=== PATIENT | female | born 1940 | race Caucasian/White ===

== ENCOUNTER 2016-08-10 07:22 | Inpatient (IN) | payer MEDICARE, BC ==
[~2016-08-10 07:22] MED LIST: Bisacodyl 5 MG Tab PO PRN; Lactated Ringers 1,000 ML IV SCH; Lidocaine 1%/Sod Bicarbonate in NS 8.4% 1 ML Syringe IV PRN; Magnesium Hydroxide 400 MG/5 ML Susp 30 ML Cup PO PRN; Naloxone 0.4 MG/ML SDV IVPUSH PRN; Sennosides 8.6 MG Tab PO PRN; Sodium Chloride 0.9% 10 ML Syringe FLUSH PRN; ceFAZolin 2 GM in Premix Bag 1 BAG IV SCH
[2016-08-10] MEDS ORDERED: ceFAZolin 1 GM Vial ONE (07:24)
[2016-08-10] MEDS ORDERED: Propofol 200 MG/20 ML SDV ONE ×2 (07:33→09:56)
[2016-08-10] MEDS ORDERED: Lidocaine 1% 4 ML ONE (07:33)
[2016-08-10] MEDS ORDERED: Morphine PF 10 MG/10 ML SDV ONE (07:33)
[2016-08-10] MEDS ORDERED: Midazolam 1 MG/ML 2 ML SDV ONE (07:48)
--- NOTE | 2016-08-10 08:03 | PCM.PREANE ---
Preanesthetic Assessment - Procedure Proposed Procedure: Right total knee replacement - Anesthesia/Transfusion/Family Hx Anesthesia History: Prior Anesthesia Reaction (nausea from general anesthetics) Family History of Anesthesia Reaction: No Transfusion History: Prior Transfusion Without Reaction Intubation History: Unknown - Review of Systems General: No Symptoms Pulmonary: No Symptoms Cardiovascular: Dyspnea on Exertion (with 2 flights of stairs ) Gastrointestinal: No symptoms Neurological: Other (restless leg syndrome on medication ) Other: Reports: None - Physical Assessment NPO Status Date: 08/09/16 NPO Status Time: 20:30 Pulse: 67 O2 Sat by Pulse Oximetry: 96 Respiratory Rate: 16 Blood Pressure: 154/91 Temperature: 36.9 C Height: 1.63 m Weight: 106.141 kg ASA Class: 3 Mental Status: Alert & Oriented x3 Airway Class: Mallampati = 1 Dentition: Reports: Dentures (upper ), Edentulous (lower ) Thyro-Mental Finger Breadths: 3 Mouth Opening Finger Breadths: 4 ROM/Head Extension: Full Lungs: Clear to auscultation, Normal respiratory effort Cardiovascular: Regular Rate, Regular Rhythm - Lab Values: Laboratory Last Values MRSA (PCR) Negative 07/29/16 13:39 Plts 122, INR being drawn - Allergies Allergies/Adverse Reactions: Allergies Allergy/AdvReac Type Severity Reaction Status Date / Time adhesive Allergy Rash Verified 08/07/16 15:39 pravastatin [From Pravachol] Allergy Muscle Verified 08/07/16 15:39 Weakness atorvastatin calcium AdvReac Muscle Verified 08/07/16 15:39 [From Lipitor] Weakness rosuvastatin calcium AdvReac Muscle Verified 08/07/16 15:39 [From Crestor] Weakness simvastatin [From Zocor] AdvReac Muscle Verified 08/07/16 15:39 Weakness Ubdlxht-Teb-Qkv Reductase AdvReac Muscle Verified 08/07/16 15:39 Inhibitor Weakness - Blood Blood Available: No - Anesthesia Plan Pre-Op Medication Ordered: None - Acknowledgements Anesthesia Type Planned: Spinal Pt an Appropriate Candidate for the Planned Anesthesia: Yes Alternatives and Risks of Anesthesia Discussed w Pt/Guardian: Yes Pt/Guardian Understands and Agrees with Anesthesia Plan: Yes PreAnesthesia Questionnaire HEENT History: Reports: Retinal Detachment, Other (See Below) Other HEENT History: dentures, hearing aids, glasses Cardiovascular History: Reports: Afib, High Cholesterol, Hypertension, Other ( See Below) Other Cardiovascular History: DVT L lower leg, arteriosclerotic vascular disease , varicose veins Respiratory History: Reports: 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 (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) Other OB/BYN History: Vaginal hysterectomy Musculoskeletal History: Reports: Other (See Below) Other Musculoskeletal History: polymyalgia rheumatica, restless leg syndrome, back pain, L shoudler subacromial impingement, osteoarthritis to R knee Neurological History: Reports: Other (See Below) Psychiatric History: Reports: None Endocrine/Metabolic History: Reports: None Hematologic History: Reports: Other (See Below) Other Hematologic History: is on blood thinners Immunologic History: Reports: Other (See Below) Other Immunologic History: Polymyalgia rheumatic Oncologic (Cancer) History: Reports: Breast Dermatologic History: Reports: Other (See Below) Other Dermatologic History: varicose veins, cyst excision, contact dermatitis, thrombophlebitis - Past Surgical History HEENT Surgical History: Reports: Cataract Surgery, Eye Surgery, LASIK, Tonsillectomy GI Surgical History: Reports: Colonoscopy Female Surgical History: Reports: Hysterectomy, Mastectomy, Other (See Below) Other Female Surgeries/Procedures: R breast cancer with partial masectomy Other Neurological Surgeries/Procedures: spine surgery Musculoskeletal Surgical History: Reports: Other (See Below) Other Musculoskeletal Surgeries/Procedures:: Elbow surgery with radial head replacment, L and R total hip replacement Oncologic Surgical History: Reports: Other (See Below) Other Oncologic Surgeries/Procedures: Current right partial mastectomy with lymph node removal. - SUBSTANCE USE Smoking Status *Q: Never Smoker Second Hand Smoke Exposure: No Recreational Drug Use History: No - HOME MEDS Home Medications: Home Meds Metoprolol Succinate [Toprol XL] 50 mg PO 1600 05/09/15 [History] Warfarin [Coumadin] 5 mg PO MOWEFR 05/09/15 [History] Warfarin [Coumadin] 7.5 mg PO SUTUTHSA 05/09/15 [History] Anastrozole [Anastrozole] 1 mg PO DAILY 08/07/16 [History] Ezetimibe [Zetia] 10 mg PO DAILY 08/07/16 [History] Gabapentin [Gabapentin] 300 mg PO TID 08/07/16 [History] Potassium Chloride [Klor-Con 10] 10 meq PO DAILY 08/07/16 [History] guaiFENesin [Mucinex] 1,200 mg PO DAILY 08/07/16 [History] - CURRENT (IN HOUSE) MEDS Current Meds: Current Medications Bisacodyl (Dulcolax) 5 mg PO DAILY PRN PRN Reason: Constipation Morphine Sulfate 8 mg/Epinephrine HCl 0.3 mg/Cefuroxime Sodium 750 mg/Ketorolac Tromethamine 30 mg/Sodium Chloride 27.9 ml 0 mg .XX ONETIME ONE Stop: 08/10/16 09:31 Docusate Sodium (Colace) 100 mg PO BID [facility] Enoxaparin Sodium (Lovenox) 40 mg SUBCUT BID [facility] Famotidine (Pepcid) 20 mg PO Q12H [facility] Lactated Ringer's (Ringers, Lactated) 1,000 mls @ 125 mls/hr IV ASDIRECTED [facility] Cefazolin Sodium/Dextrose 2 gm (/ Premix) 50 mls @ 100 mls/hr IV Q8H [facility] Stop: 08/10/16 23:44 Lidocaine/Sodium Bicarbonate (Buffered Lidocaine 1% In Ns 8.4%) 0.25 ml IV ONETIME PRN PRN Reason: Prior to IV Start Stop: 08/10/16 18:00 Magnesium Hydroxide (Milk Of Magnesia) 30 ml PO BID PRN PRN Reason: Constipation Morphine Sulfate (Morphine) 2 mg IVPUSH Q2H PRN PRN Reason: Breakthrough Pain Multivitamins (Thera) 1 each PO WITHBREAKFAST [facility] Ondansetron HCl (Zofran) 4 mg IVPUSH Q6H PRN PRN Reason: Nausea/Vomiting Oxycodone/Acetaminophen (Percocet 325-5 Mg) 1 - 2 tab PO Q4H PRN PRN Reason: Pain Senna (Senna) 8.6 mg PO BID PRN PRN Reason: Constipation Sodium Chloride (Saline Flush) 10 ml FLUSH ASDIRECTED PRN PRN Reason: Keep Vein Open Warfarin Sodium (Pharmacy To Dose - Warfarin) 1 dose .XX ASDIRECTED [facility] Discontinued Medications Bupivacaine HCl (Marcaine 0.25%) Confirm Administered Dose 30 ml .ROUTE .STK- MED ONE Stop: 08/10/16 07:25 Cefazolin Sodium (Ancef) Confirm Administered Dose 2 gm .ROUTE .STK-MED ONE Stop: 08/10/16 07:25 Lidocaine HCl (Xylocaine-Mpf 1%) Confirm Administered Dose 4 mls @ as directed .ROUTE .STK-MED ONE Stop: 08/10/16 07:34 Iodine (Iodine 2% Mild Tincture) Confirm Administered Dose 30 ml .ROUTE .STK- MED ONE Stop: 08/10/16 07:25 Midazolam HCl (Versed 1 Mg/Ml) Confirm Administered Dose 2 mg .ROUTE .STK-MED ONE Stop: 08/10/16 07:49 Morphine Sulfate (Duramorph Pf) Confirm Administered Dose 10 mg .ROUTE .STK-MED ONE Stop: 08/10/16 07:34 Naloxone HCl (Narcan) 0.1 mg IVPUSH Q5M PRN PRN Reason: Oversedation Stop: 08/10/16 07:26 Propofol (Diprivan 20 Ml) Confirm Administered Dose 200 mg .ROUTE .STK-MED ONE Stop: 08/10/16 07:34 Tranexamic Acid (Cyklokapron) Confirm Administered Dose 1,000 mg .ROUTE .STK- MED ONE Stop: 08/10/16 07:25
[2016-08-10] MEDS ORDERED: Diphtheria,Pertussis(Acell),Tetanus Vaccine 0.5 ML SDV inactive IM ONE (09:11)
[2016-08-10] MEDS ORDERED: Ondansetron 4 MG/2 ML SDV ONE (09:23)
[2016-08-10] MEDS: ceFAZolin 1 GM Vial ONE ×2 (09:39→10:17)
[2016-08-10] MEDS: Bupivacaine 0.25% 30 ML SDV ONE ×2 (09:39→10:21)
[2016-08-10] MEDS: Iodine/Sodium Iodide 2% Tincture 30 ML Bottle ONE ×2 (09:40→10:15)
[2016-08-10] MEDS: Morphine 8 MG, EPINEPHrine 0.3 MG, Cefuroxime 750 MG, Ketorolac 30 MG, Sodium Chloride ... ONE ×10 (09:41→10:20)
[2016-08-10] MEDS ORDERED: ePHEDrine/Normal Saline 25 MG/5 ML Syringe ONE (10:28)
[2016-08-10] MEDS ORDERED: fentaNYL 100 MCG/2 ML SDV IVPUSH PRN (11:11)
[2016-08-10] MEDS ORDERED: Ondansetron 4 MG/2 ML SDV IVPUSH PRN (11:11)
[2016-08-10] MEDS ORDERED: diphenhydrAMINE 50 MG/ML SDV IVPUSH PRN (11:11)
[2016-08-10] MEDS ORDERED: HYDROmorphone 1 MG/ML Syringe IVPUSH PRN (11:11)
--- NOTE | 2016-08-10 11:11 | PCM.POSTAN ---
POST ANESTHESIA ASSESSMENT - MENTAL STATUS Mental Status: alert - VITAL SIGNS Pulse Rate: 78 SaO2: 96 Resp Rate: 18 Blood Pressure: 104/59 Temperature: 36.6 C - RESPIRATORY Respiratory Status: respiratory rate WNL, airway patent, O2 saturation stable, supplemental oxygen - CARDIOVASCULAR CV Status: pulse rate WNL, blood pressure stable - GASTROINTESTINAL GI Status: no symptoms - PAIN Pain Score: 0 - POST OP HYDRATION Hydration Status: adequate & stable
--- NOTE | 2016-08-10 11:49 | CR ---
Right knee: AP and lateral views of the right knee were obtained. Comparison: No previous knee study. Knee prosthesis is seen. Components are aligned. Underlying bony structures are intact. Soft tissue air is noted from the surgical procedure. Impression: 1. Satisfactory radiographic appearance of recently placed right knee prosthesis. Diagnostic code #2
[2016-08-10] MEDS: Famotidine 20 MG Tab PO SCH ×2 (12:14→18:20)
--- NOTE | 2016-08-10 12:49 | PCM.CONS ---
H&P History of Present Illness - General Date of Service: 08/10/16 Admit Problem/Dx: Admission Diagnosis/Problem Admission Diagnosis/Problem Osteoarthritis of knee Source of Information: Patient, Old Records, Provider, Significant Other History Limitations: Reports: Physical Impairment - History of Present Illness Initial Comments - Free Text/Narative: This is an 80-year-old, white male, with past medical history of HTN, HLD, Chronic Congestion, ASVD, PAF on Warfarin, PMR, Chronic Backache, Sub-acrominal Impingement, Hand and Foot Syndrome, Hx/o Thrombophlebitis, Hx/o BRCA S/p Chemo- Radiation Therapy 2015 who underwent right right total knee arthroplasty post operative day zero. Patient is doing relatively well. Currently, her pain is controlled. She denies any acute issues. Hospital Medicine was consulted for postoperative care. - Related Data Allergies/Adverse Reactions: Allergies Allergy/AdvReac Type Severity Reaction Status Date / Time adhesive Allergy Rash Verified 08/10/16 08:42 pravastatin [From Pravachol] Allergy Muscle Verified 08/10/16 08:42 Weakness atorvastatin calcium AdvReac Muscle Verified 08/10/16 08:42 [From Lipitor] Weakness rosuvastatin calcium AdvReac Muscle Verified 08/10/16 08:42 [From Crestor] Weakness simvastatin [From Zocor] AdvReac Muscle Verified 08/10/16 08:42 Weakness Zluqksb-Dvq-Sub Reductase AdvReac Muscle Verified 08/10/16 08:42 Inhibitor Weakness Home Medications: Home Meds Metoprolol Succinate [Toprol XL] 50 mg PO 1600 05/09/15 [History] Warfarin [Coumadin] 5 mg PO MOWEFR 05/09/15 [History] Warfarin [Coumadin] 7.5 mg PO SUTUTHSA 05/09/15 [History] Gabapentin [Gabapentin] 300 mg PO TID 08/07/16 [History] Potassium Chloride [Klor-Con 10] 10 meq PO DAILY 08/07/16 [History] guaiFENesin [Mucinex] 1,200 mg PO DAILY 08/07/16 [History] Anastrozole [Arimidex] 1 mg PO DAILY 08/10/16 [History] Calcium Carb & Citrate/Vit D3 [Calcium + D3 ER Tablet] 1 tab PO BID 08/10/16 [ History] Multivitamin [Daily Multiple Vitamin] 1 tab PO DAILY 08/10/16 [History] Past Medical History HEENT History: Reports: Retinal Detachment, Other (See Below) Other HEENT History: dentures, hearing aids, glasses Cardiovascular History: Reports: Afib, High Cholesterol, Hypertension, Other ( See Below) Other Cardiovascular History: DVT L lower leg, arteriosclerotic vascular disease , varicose veins Respiratory History: Reports: 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) Other OB/BYN History: Vaginal hysterectomy Musculoskeletal History: Reports: Other (See Below) Other Musculoskeletal History: polymyalgia rheumatica, restless leg syndrome, back pain, L shoudler subacromial impingement, osteoarthritis to R knee Neurological History: Reports: Other (See Below) Psychiatric History: Reports: None Endocrine/Metabolic History: Reports: None Hematologic History: Reports: Other (See Below) Other Hematologic History: is on blood thinners Immunologic History: Reports: Other (See Below) Other Immunologic History: Polymyalgia rheumatic Oncologic (Cancer) History: Reports: Breast Dermatologic History: Reports: Other (See Below) Other Dermatologic History: varicose veins, cyst excision, contact dermatitis, thrombophlebitis - Past Surgical History HEENT Surgical History: Reports: Cataract Surgery, Eye Surgery, LASIK, Tonsillectomy GI Surgical History: Reports: Colonoscopy Female Surgical History: Reports: Hysterectomy, Mastectomy, Other (See Below) Other Female Surgeries/Procedures: R breast cancer with partial masectomy Other Neurological Surgeries/Procedures: spine surgery Musculoskeletal Surgical History: Reports: Other (See Below) Other Musculoskeletal Surgeries/Procedures:: Elbow surgery with radial head replacment, L and R total hip replacement Oncologic Surgical History: Reports: Other (See Below) Other Oncologic Surgeries/Procedures: Current right partial mastectomy with lymph node removal. Social & Family History - Family History Family Medical History: Noncontributory - Tobacco Use Smoking Status *Q: Never Smoker Second Hand Smoke Exposure: No - Caffeine Use Caffeine Use: Reports: Coffee - Recreational Drug Use Recreational Drug Use: No Drug Use in Last 12 Months: No H&P Review of Systems - Review of Systems: Review Of Systems: See Below General: Denies: Fever, Chills, Malaise, Weakness, Fatigue HEENT: Reports: No Symptoms Pulmonary: Denies: Shortness of Breath Cardiovascular: Denies: Chest Pain, Dyspnea on Exertion Gastrointestinal: Denies: Abdominal Pain, Nausea, Vomiting Genitourinary: Denies: Dysuria Musculoskeletal: Reports: No Symptoms Skin: Denies: Cyanosis, Rash, Erythema Psychiatric: Denies: Depression, Anxiety, Hallucinations Neurological: Reports: Difficulty Walking, Gait Disturbance. Denies: Confusion Hematologic/Lymphatic: Reports: No Symptoms Immunologic: Reports: No Symptoms Exam - Exam Exam: See Below - Vital Signs Vital Signs: Last Vital Signs Temp 36.4 C 08/10/16 11:45 Pulse 78 08/10/16 11:10 Resp 16 08/10/16 11:45 BP 102/57 L 08/10/16 11:45 Pulse Ox 96 08/10/16 11:45 Weight: 106.141 kg - Exam Quality Assessment: Supplemental Oxygen General: Alert, Oriented, Cooperative, Other (Obese). No: Mild Distress HEENT: Conjunctiva Clear, EACs Clear, Hearing Intact, Mucosa Moist & [place], Nares Patent, Normal Nasal Septum, Posterior Pharynx Clear, Pupils Equal, Pupils Reactive Neck: Supple, Trachea Midline, +2 Carotid Pulse wo Bruit, Other (short and thick ) Lungs: Clear to Auscultation, Normal Respiratory Effort Cardiovascular: Regular Rate, Regular Rhythm Abdomen: Normal Bowel Sounds, Soft, Tenderness. No: Organomegaly (Female) Exam: Other (Indwelling spicer catheter) Rectal (Female) Exam: Deferred Back Exam: Normal Inspection, Decreased Range of Motion Extremities: Normal Inspection, Normal Pulses, Cyanosis, Calf Tenderness. No: Edema Peripheral Pulses: 2+: Posterior Tibial (L), Posterior Tibial (R), Dorsalis Pedis (L), Dorsalis Pedis (R) Skin: Warm, Dry, Intact Neuro Extensive - Mental Status: Oriented x3, Normal Cognition, Memory Intact Neuro Extensive - Motor, Sensory, Reflexes: CN II-XII Intact (limited but fairly stable), Abnormal Gait Psychiatric: Alert, Normal Affect, Normal Mood - Patient Data Lab Results last 24 hrs: Laboratory Results - last 24 hr 08/10/16 Range/Units 07:50 PT 9.8 (8.0-13.0) SECONDS INR 0.90 Consult PN Assessment/Plan POD#: 0 Procedures: Procedures ASSAY OF CREATININE (05/18/16) ASSAY OF MAGNESIUM (07/27/15) ASSAY OF PHOSPHORUS (03/11/15) ASSAY OF TROPONIN QUANT (05/14/15) BIOPSY/REMOVAL LYMPH NODES (03/11/15) BX BREAST 1ST LESION STRTCTC (02/12/15) CHEST X-RAY 1 VIEW FRONTAL (05/14/15) COMPLETE CBC W/AUTO DIFF WBC (07/27/15) COMPREHEN METABOLIC PANEL (07/27/15) CT ANGIOGRAPHY CHEST (05/14/15) CYTOGENETICS 25-99 (02/12/15) CYTOGENETICS DNA PROBE (02/12/15) DESTRUCT B9 LESION 1-14 (03/11/15) DXA BONE DENSITY AXIAL (05/25/16) ELECTROCARDIOGRAM TRACING (05/14/15) EMERGENCY DEPT VISIT (07/27/15) EMERGENCY DEPT VISIT (05/14/15) FIBRIN DEGRADATION QUANT (05/14/15) FLUOROSCOPE EXAMINATION (05/10/15) HYDRATION IV INFUSION INIT (07/27/15) IMMUNOHISTO ANTB 1ST STAIN (03/11/15) IMMUNOHISTO ANTIBODY SLIDE (02/12/15) INSERT TUNNELED CV CATH (05/10/15) MRI BRAIN STEM W/O & W/DYE (05/18/16) MRI LUMBAR SPINE W/O DYE (04/27/14) OT EVALUATION (03/11/15) PARTIAL MASTECTOMY (03/11/15) PATH CONSULT INTRAOP 1 BLOC (03/11/15) PATH CONSULT INTRAOP ADDL (03/11/15) PERQ DEVICE BREAST 1ST IMAG (03/11/15) PROTHROMBIN TIME (07/27/15) PT EVALUATION (03/11/15) RA TRACER ID OF SENTINL NODE (03/11/15) ROUTINE VENIPUNCTURE (05/18/16) THER/PROPH/DIAG INJ SC/IM (05/14/15) TISSUE EXAM BY PATHOLOGIST (03/11/15) TISSUE EXAM BY PATHOLOGIST (03/11/15) TISSUE EXAM BY PATHOLOGIST (02/12/15) TTE W/DOPPLER COMPLETE (03/11/15) ULTRASOUND BREAST COMPLETE (10/31/15) URINALYSIS AUTO W/SCOPE (03/11/15) X-RAY EXAM BREAST SPECIMEN (03/11/15) Problem List Initiated/Reviewed/Updated: Yes Plan: Assessment: Acute: Post-Operative Care State - Stable - Continue to monitor for hemodynamic instability S/p Right Total Knee Arthroplasty - Stable - DVT and Pain Management as per primary team Hx/o Chronic Knee Pain 2/2 OA - Pain Management as per primary team Chronic: HTN HLD Congestion ASVD PAF on Warfarin PMR Backache Sub-acrominal Impingement Hand and Foot Syndrome Hx/o Thrombophlebitis Hx/o BRCA S/p Chemo-radiation Therapy 2016 Obesity with BMI 39.5 Plan: She is clinically stable Routine AM labs Continue home meds Resume anticoags with daily INR PT/OT consult IS q2 awake Thank you for the opportunity to participate in the management of this patient. Requesting Provider: Dr. Chapa Date Consult Requested: 08/10/16 Reason for Consult: Post-Operative Care Patient History Reviewed: Yes Admission H&P Reviewed: Yes Consult Result/Summary: Stable
[2016-08-10] MEDS ORDERED: hydrALAZINE 20 MG/ML SDV IVPUSH PRN (14:38)
[2016-08-10] MEDS ORDERED: Metoprolol Tartrate 5 MG/5 ML SDV IVPUSH PRN (14:38)
[2016-08-10] MEDS: Enoxaparin 100 MG/1 ML Syringe SUBCUT SCH ×2 (14:47→21:48)
[2016-08-10] MEDS ORDERED: Lactated Ringers 2,000 ML ONE (14:51)
[2016-08-10] MEDS: ceFAZolin 2 GM in Premix Bag 1 BAG IV SCH ×2 (15:27→22:36)
[2016-08-10] MEDS ORDERED: Warfarin 5 MG Tab PO SCH (18:00)
[2016-08-10] MEDS: Acetaminophen/oxyCODONE 325-5 MG Tab PO PRN ×2 (18:20→22:36)
[2016-08-10] MEDS: Docusate Sodium 100 MG Cap PO SCH (21:48)
[2016-08-11] MEDS: Acetaminophen/oxyCODONE 325-5 MG Tab PO PRN ×6 (04:05→21:41)
[2016-08-11] MEDS: Multivitamins,Therapeutic Tab PO SCH (06:37)
[2016-08-11] MEDS: Famotidine 20 MG Tab PO SCH ×3 (06:38→18:58)
[2016-08-11] MEDS: ceFAZolin 2 GM in Premix Bag 1 BAG IV SCH (06:38)
--- NOTE | 2016-08-11 06:54 | PCM.CONSN ---
- General Info Date of Service: 08/11/16 Admission Dx/Problem (Free Text): Admission Diagnosis/Problem Admission Diagnosis/Problem Osteoarthritis of knee POD #[address] Chapa Pain under fair to poor control. She is nauseous this morning and was through the night. Remains on supplemental oxygen at this time. Will need lovenox bridge for Coumadin which was restarted. Otherwise VSS, labs stable. Functional Status: Reports: pain controlled, tolerating diet, ambulating, urinating. Denies: new symptoms - Review of Systems General: Reports: No Symptoms HEENT: Reports: no symptoms Pulmonary: Reports: no symptoms. Denies: shortness of breath, cough, wheezing Cardiovascular: Reports: No Symptoms Gastrointestinal: Reports: Decreased appetite, Flatus, Nausea. Denies: Abdominal pain, Vomiting Genitourinary: Reports: no symptoms Musculoskeletal: Reports: leg pain Skin: Reports: no symptoms Neurological: Reports: No Symptoms Psychiatric: Reports: no symptoms - Patient Data Vitals - most recent: Last Vital Signs Temp 97.9 F 08/11/16 03:48 Pulse 78 08/11/16 03:48 Resp 12 08/11/16 06:00 BP 113/61 08/11/16 03:48 Pulse Ox 96 08/11/16 03:48 Weight - most recent: 241 lb 1.6 oz I&O - last 24 hours: Intake & Output 08/10/16 08/10/16 08/11/16 14:59 22:59 06:59 Intake Total 466 997 1217 Output Total 240 100 100 Balance -90 270 950 Lab Results last 24 hrs: Laboratory Results - last 24 hr 08/10/16 08/11/16 Range/Units 07:50 05:16 WBC 6.17 (3.98-10.04) K/mm3 RBC 3.52 L (3.98-5.22) M/mm3 Hgb 11.0 L (11.2-15.7) gm/L Hct 34.2 (34.1-44.9) % MCV 97.2 H (79.4-94.8) fl MCH 31.3 (25.6-32.2) pg MCHC 32.2 (32.2-35.5) g/dl RDW Std Deviation 46.3 (36.4-46.3) fL Plt Count 177 L (182-369) K/mm3 MPV 8.5 L (9.4-12.3) fl Neut % (Auto) 70.4 (34.0-71.1) % Lymph % (Auto) 11.7 L (19.3-51.7) % Irwin % (Auto) 14.7 H (4.7-12.5) % Eos % (Auto) 2.8 (0.7-5.8) Baso % (Auto) 0.2 (0.1-1.2) % Neut # (Auto) 4.35 (1.56-6.13) K/mm3 Lymph # (Auto) 0.72 L (1.18-3.74) K/mm3 Irwin # (Auto) 0.91 H (0.24-0.36) K/mm3 Eos # (Auto) 0.17 (0.04-0.36) K/mm3 Baso # (Auto) 0.01 (0.01-0.08) K/mm3 PT 9.8 (8.0-13.0) SECONDS INR 0.90 Med Orders - Current: Current Medications Bisacodyl (Dulcolax) 5 mg PO DAILY PRN PRN Reason: Constipation Diphenhydramine HCl (Benadryl) 12.5 mg IVPUSH Q6H PRN PRN Reason: pruritis Docusate Sodium (Colace) 100 mg PO BID [facility] Last Admin: 08/10/16 21:48 Dose: 100 mg Enoxaparin Sodium (Lovenox) 100 mg SUBCUT BID [facility] Last Admin: 08/10/16 21:48 Dose: 100 mg Famotidine (Pepcid) 20 mg PO Q12H [facility] Last Admin: 08/11/16 06:38 Dose: 20 mg Hydralazine HCl (Apresoline) 20 mg IVPUSH Q4H PRN PRN Reason: Hypertension Cefazolin Sodium/Dextrose 2 gm (/ Premix) 50 mls @ 100 mls/hr IV Q8H [facility] Stop: 08/11/16 07:59 Last Admin: 08/11/16 06:38 Dose: 100 mls/hr Magnesium Hydroxide (Milk Of Magnesia) 30 ml PO BID PRN PRN Reason: Constipation Magnesium Sulfate (Pharmacy To Dose - Magnesium Replacement) 1 dose .XX ASDIRECTED [facility] Metoprolol Tartrate (Lopressor) 5 mg IVPUSH Q4H PRN PRN Reason: Tachycardia Morphine Sulfate (Morphine) 2 mg IVPUSH Q2H PRN PRN Reason: Breakthrough Pain Multivitamins (Thera) 1 each PO WITHBREAKFAST [facility] Last Admin: 08/11/16 06:37 Dose: 1 each Ondansetron HCl (Zofran) 4 mg IVPUSH Q6H PRN PRN Reason: Nausea/Vomiting Oxycodone/Acetaminophen (Percocet 325-5 Mg) 1 - 2 tab PO Q4H PRN PRN Reason: Pain Last Admin: 08/11/16 04:05 Dose: 2 tab Potassium Chloride (Pharmacy To Dose - Potassium Replacement) 1 dose .XX ASDIRECTED [facility] Senna (Senna) 8.6 mg PO BID PRN PRN Reason: Constipation Sodium Chloride (Saline Flush) 10 ml FLUSH ASDIRECTED PRN PRN Reason: Keep Vein Open Warfarin Sodium (Pharmacy To Dose - Warfarin) 1 dose .XX ASDIRECTED [facility] Warfarin Sodium (Coumadin) 5 mg PO MOWEFR [facility] Last Admin: 08/10/16 18:20 Dose: 5 mg [facility]farin Sodium ([facility]madin) [facility] Discontinued Medications Bupivacaine HCl (Marcaine 0.25%) Confirm Administered Dose 30 ml .ROUTE .STK- MED ONE Stop: 08/10/16 07:25 Last Admin: 08/10/16 10:21 Dose: 30 ml Cefazolin Sodium (Ancef) Confirm Administered Dose 2 gm .ROUTE .STK-MED ONE Stop: 08/10/16 07:25 Cefazolin Sodium (Ancef) Confirm Administered Dose 2 gm .ROUTE .STK-MED ONE Stop: 08/10/16 09:24 Last Admin: 08/10/16 10:17 Dose: 2 gm Morphine Sulfate 8 mg/Epinephrine HCl 0.3 mg/Cefuroxime Sodium 750 mg/Ketorolac Tromethamine 30 mg/Sodium Chloride 27.9 ml 0 mg .XX ONETIME ONE Stop: 08/10/16 09:31 Last Admin: 08/10/16 10:20 Dose: 788.3 mg Diphtheria/Tetanus/Acell Pertussis (Boostrix) 0.5 ml IM .ONCE ONE Stop: 08/10/16 09:12 Ephedrine Sulfate (Ephedrine In Ns) Confirm Administered Dose 25 mg .ROUTE .STK- MED ONE Stop: 08/10/16 10:29 Hydromorphone HCl (Dilaudid) 0.5 mg IVPUSH Q15M PRN PRN Reason: severe pain Stop: 08/10/16 11:27 Lactated Ringer's (Ringers, Lactated) 1,000 mls @ 125 mls/hr IV ASDIRECTED [facility] Last Admin: 08/10/16 07:45 Dose: 125 mls/hr Cefazolin Sodium/Dextrose 2 gm (/ Premix) 50 mls @ 100 mls/hr IV Q8H [facility] Stop: 08/10/16 23:44 Last Admin: 08/10/16 13:34 Dose: Not Given Lidocaine HCl (Xylocaine-Mpf 1%) Confirm Administered Dose 4 mls @ as directed .ROUTE .STK-MED ONE Stop: 08/10/16 07:34 Lactated Ringer's (Ringers, Lactated) Confirm Administered Dose 2,000 mls @ as directed .ROUTE .STK-MED ONE Stop: 08/10/16 14:52 Iodine (Iodine 2% Mild Tincture) Confirm Administered Dose 30 ml .ROUTE .STK- MED ONE Stop: 08/10/16 07:25 Last Admin: 08/10/16 10:15 Dose: 18 ml Lidocaine/Sodium Bicarbonate (Buffered Lidocaine 1% In Ns 8.4%) 0.25 ml IV ONETIME PRN PRN Reason: Prior to IV Start Stop: 08/10/16 18:00 Last Admin: 08/10/16 07:44 Dose: 0.25 ml Midazolam HCl (Versed 1 Mg/Ml) Confirm Administered Dose 2 mg .ROUTE .STK-MED ONE Stop: 08/10/16 07:49 Morphine Sulfate (Duramorph Pf) Confirm Administered Dose 10 mg .ROUTE .STK-MED ONE Stop: 08/10/16 07:34 Naloxone HCl (Narcan) 0.1 mg IVPUSH Q5M PRN PRN Reason: Oversedation Stop: 08/10/16 07:26 Ondansetron HCl (Zofran) Confirm Administered Dose 4 mg .ROUTE .STK-MED ONE Stop: 08/10/16 09:24 Ondansetron HCl (Zofran) 4 mg IVPUSH ONETIME PRN PRN Reason: Nausea/Vomiting Propofol (Diprivan 20 Ml) Confirm Administered Dose 200 mg .ROUTE .STK-MED ONE Stop: 08/10/16 07:34 Propofol (Diprivan 20 Ml) Confirm Administered Dose 200 mg .ROUTE .STK-MED ONE Stop: 08/10/16 09:57 Tranexamic Acid (Cyklokapron) Confirm Administered Dose 1,000 mg .ROUTE .STK- MED ONE Stop: 08/10/16 07:25 Last Admin: 08/10/16 10:25 Dose: 1,000 mg Warfarin Sodium (Pharmacy To Dose - Warfarin) 1 dose .XX ASDIRECTED VANDANA - Exam Quality Assessment: DVT prophylaxis General: alert, oriented, cooperative, no acute distress HEENT: Pupils equal, Pupils reactive, Mucous membr. moist/pink Neck: supple Lungs: Clear to auscultation, Normal respiratory effort, Decreased breath sounds (bases bilat) Cardiovascular: Regular Rate, Regular Rhythm Abdomen: bowel sounds present, soft, no tenderness, no distension (Female) Exam: Deferred Extremities: other (teds, SCD's, polarcare to rt knee) Peripheral Pulses: 1+: Dorsalis Pedis (L), Dorsalis Pedis (R) Skin: warm, dry Wound/Incisions: dressing dry and intact Neurological: no new focal deficit Psy/Mental Status: alert, normal affect, normal mood Consult PN Assessment/Plan POD#: 1 Procedures: Procedures ASSAY OF CREATININE (05/18/16) ASSAY OF MAGNESIUM (07/27/15) ASSAY OF PHOSPHORUS (03/11/15) ASSAY OF TROPONIN QUANT (05/14/15) BIOPSY/REMOVAL LYMPH NODES (03/11/15) BX BREAST 1ST LESION STRTCTC (02/12/15) CHEST X-RAY 1 VIEW FRONTAL (05/14/15) COMPLETE CBC W/AUTO DIFF WBC (07/27/15) COMPREHEN METABOLIC PANEL (07/27/15) CT ANGIOGRAPHY CHEST (05/14/15) CYTOGENETICS 25-99 (02/12/15) CYTOGENETICS DNA PROBE (02/12/15) DESTRUCT B9 LESION 1-14 (03/11/15) DXA BONE DENSITY AXIAL (05/25/16) ELECTROCARDIOGRAM TRACING (05/14/15) EMERGENCY DEPT VISIT (07/27/15) EMERGENCY DEPT VISIT (05/14/15) FIBRIN DEGRADATION QUANT (05/14/15) FLUOROSCOPE EXAMINATION (05/10/15) HYDRATION IV INFUSION INIT (07/27/15) IMMUNOHISTO ANTB 1ST STAIN (03/11/15) IMMUNOHISTO ANTIBODY SLIDE (02/12/15) INSERT TUNNELED CV CATH (05/10/15) MRI BRAIN STEM W/O & W/DYE (05/18/16) MRI LUMBAR SPINE W/O DYE (04/27/14) OT EVALUATION (03/11/15) PARTIAL MASTECTOMY (03/11/15) PATH CONSULT INTRAOP 1 BLOC (03/11/15) PATH CONSULT INTRAOP ADDL (03/11/15) PERQ DEVICE BREAST 1ST IMAG (03/11/15) PROTHROMBIN TIME (07/27/15) PT EVALUATION (03/11/15) RA TRACER ID OF SENTINL NODE (03/11/15) ROUTINE VENIPUNCTURE (05/18/16) THER/PROPH/DIAG INJ SC/IM (05/14/15) TISSUE EXAM BY PATHOLOGIST (03/11/15) TISSUE EXAM BY PATHOLOGIST (03/11/15) TISSUE EXAM BY PATHOLOGIST (02/12/15) TTE W/DOPPLER COMPLETE (03/11/15) ULTRASOUND BREAST COMPLETE (10/31/15) URINALYSIS AUTO W/SCOPE (03/11/15) X-RAY EXAM BREAST SPECIMEN (03/11/15) (1) S/P total knee arthroplasty SNOMED Code(s): 8913790505350, 692712646, 0112340345706 Code(s): Z96.659 - PRESENCE OF UNSPECIFIED ARTIFICIAL KNEE JOINT Priority: High Current Visit: Yes Qualifiers: Laterality: right Qualified Code(s): Z96.651 - Presence of right artificial knee joint (2) Osteoarthritis SNOMED Code(s): 829738745 Code(s): M19.90 - UNSPECIFIED OSTEOARTHRITIS, UNSPECIFIED SITE Priority: High Current Visit: Yes Qualifiers: Osteoarthritis location: knee Osteoarthritis type: primary Laterality: right Qualified Code(s): M17.11 - Unilateral primary osteoarthritis, right knee Problem List Initiated/Reviewed/Updated: Yes Plan: Assessment: S/p Right Total Knee Arthroplasty, POD #1, Dr. Chapa - DVT and Pain Management as per primary team - PT/OT - IS/RT - Hgb 11.0 today - VSS, on supplemental oxygen - Doing well overall- control nausea with antiemetics, scopolamine patch ordered. - Wean supplemental O2 Chronic: HTN- stable; cont home meds HLD ASVD PAF on Warfarin; resume Coumadin today; INR 0.9 this morning- bridge with lovenox PMR Chronic LBP Sub-acrominal Impingement Hx/o Thrombophlebitis Hx/o BRCA S/p Chemo-radiation Therapy 2015 Obesity with BMI 39.5 Other: DVT/GI prophylax CM/SW for assistance with DC planning-- plans discharge home with family- likely tomorrow. Patient is Full Code status
[2016-08-11] MEDS: Morphine 2 MG/ML Syringe IVPUSH PRN ×2 (07:15→17:31)
[2016-08-11] MEDS: Ondansetron 4 MG/2 ML SDV IVPUSH PRN ×2 (07:38→17:25)
--- NOTE | 2016-08-11 08:24 | PCM48HPAN ---
Post Anesthesia Note - EVALUATION WITHIN 48HRS OF ANESTHETIC Vital Signs in Normal Range: Yes Patient Participated in Evaluation: Yes Respiratory Function Stable: Yes Airway Patent: Yes Cardiovascular Function Stable: Yes Hydration Status Stable: Yes Pain Control Satisfactory: Yes (Pt getting scheduled norco and requiring some IV morphine for breakthru carter) Nausea and Vomiting Control Satisfactory: Yes (Pt had nausea yest. and a bit this morning with the IV MSO4. now improved) Mental Status Recovered: Yes - COMMENTS/OBSERVATIONS Free Text/Narrative:: Pt up with PT and to restroom without problems. Pain with marginal control. encouraged pt to use cold pad. nausea improved. no fever. still on oxygen and encouraged hourly IS use.
[2016-08-11] MEDS ORDERED: Scopolamine 1.5 MG Transdermal Patch TOP ONE (09:30)
[2016-08-11] MEDS: Enoxaparin 100 MG/1 ML Syringe SUBCUT SCH ×2 (09:47→21:40)
[2016-08-11] MEDS: Docusate Sodium 100 MG Cap PO SCH ×2 (09:47→21:42)
--- NOTE | 2016-08-11 12:42 | PCM.SURGPN ---
- General Info Date of Service: 08/11/16 POD#: 1 Functional Status: Reports: pain controlled, tolerating diet, ambulating, urinating, other (The pt has been unable to wean from use of O2 at this time.) - Patient Data Vitals - most recent: Last Vital Signs Temp 98.4 F 08/11/16 08:14 Pulse 80 08/11/16 08:14 Resp 18 08/11/16 08:14 BP 144/70 H 08/11/16 08:14 Pulse Ox 95 08/11/16 09:08 Weight - most recent: 241 lb 1.6 oz I&O - last 24 hours: Intake & Output 08/10/16 08/11/16 08/11/16 22:59 06:59 14:59 Intake Total 370 1050 0 Output Total 100 100 Balance 270 950 0 Lab Results last 24 hrs: Laboratory Results - last 24 hr 08/11/16 08/11/16 08/11/16 Range/Units 05:16 05:16 05:16 WBC 6.17 (3.98-10.04) K/mm3 RBC 3.52 L (3.98-5.22) M/mm3 Hgb 11.0 L (11.2-15.7) gm/L Hct 34.2 (34.1-44.9) % MCV 97.2 H (79.4-94.8) fl MCH 31.3 (25.6-32.2) pg MCHC 32.2 (32.2-35.5) g/dl RDW Std Deviation 46.3 (36.4-46.3) fL Plt Count 177 L (182-369) K/mm3 MPV 8.5 L (9.4-12.3) fl Neut % (Auto) 70.4 (34.0-71.1) % Lymph % (Auto) 11.7 L (19.3-51.7) % [place] % (Auto) 14.7 H (4.7-12.5) % Eos % (Auto) 2.8 (0.7-5.8) Baso % (Auto) 0.2 (0.1-1.2) % Neut # (Auto) 4.35 (1.56-6.13) K/mm3 Lymph # (Auto) 0.72 L (1.18-3.74) K/mm3 Norton # (Auto) 0.91 H (0.24-0.36) K/mm3 Eos # (Auto) 0.17 (0.04-0.36) K/mm3 Baso # (Auto) 0.01 (0.01-0.08) K/mm3 PT 10.6 (8.0-13.0) SECONDS INR 0.97 Sodium 137 (136-145) mEq/L Potassium 4.1 (3.5-5.1) mEq/L Chloride 105 (98-107) mEq/L Carbon Dioxide 26 (21-32) mEq/L Anion Gap 10.1 (5-15) BUN 12 (7-18) mg/dL Creatinine 0.8 (0.55-1.02) mg/dL Est Cr Clr Drug Dosing 51.92 mL/min Estimated GFR (MDRD) > 60 (>60) mL/min BUN/Creatinine Ratio 15.0 (14-18) Glucose 114 (83-115) mg/dL Calcium 8.2 L (8.5-10.1) mg/dL Total Bilirubin 0.9 (0.2-1.0) mg/dL AST 18 (15-37) U/L ALT 16 (14-59) U/L Alkaline Phosphatase 61 (46-116) U/L Total Protein 5.9 L (6.4-8.2) g/dl Albumin 2.6 L (3.4-5.0) g/dl Globulin 3.3 gm/dL Albumin/Globulin Ratio 0.8 L (1-2) Med Orders - Current: Current Medications Bisacodyl (Dulcolax) 5 mg PO DAILY PRN PRN Reason: Constipation Last Admin: 08/11/16 09:47 Dose: 5 mg Diphenhydramine HCl (Benadryl) 12.5 mg IVPUSH Q6H PRN PRN Reason: pruritis Docusate Sodium (Colace) 100 mg PO BID [facility] Last Admin: 08/11/16 09:47 Dose: 100 mg Enoxaparin Sodium (Lovenox) 100 mg SUBCUT BID [facility] Last Admin: 08/11/16 09:47 Dose: 100 mg Famotidine (Pepcid) 20 mg PO Q12H [facility] Last Admin: 08/11/16 06:38 Dose: 20 mg Hydralazine HCl (Apresoline) 20 mg IVPUSH Q4H PRN PRN Reason: Hypertension Magnesium Hydroxide (Milk Of Magnesia) 30 ml PO BID PRN PRN Reason: Constipation Magnesium Sulfate (Pharmacy To Dose - Magnesium Replacement) 1 dose .XX ASDIRECTED [facility] Metoprolol Tartrate (Lopressor) 5 mg IVPUSH Q4H PRN PRN Reason: Tachycardia Miscellaneous Information (Remove Patch) 0 ea TRDERM ONETIME ONE Stop: 08/14/16 09:31 Morphine Sulfate (Morphine) 2 mg IVPUSH Q2H PRN PRN Reason: Breakthrough Pain Last Admin: 08/11/16 07:15 Dose: 2 mg [facility] ([facility]ra) [facility] Last Admin: 08/11/16 06:37 Dose: 1 each Ondansetron HCl (Zofran) 4 mg IVPUSH Q6H PRN PRN Reason: Nausea/Vomiting Last Admin: 08/11/16 07:38 Dose: 4 mg Oxycodone/Acetaminophen (Percocet 325-5 Mg) 1 - 2 tab PO Q4H PRN PRN Reason: Pain Last Admin: 08/11/16 09:47 Dose: 1 tab Potassium Chloride (Pharmacy To Dose - Potassium Replacement) 1 dose .XX ASDIRECTED [facility] Senna (Senna) 8.6 mg PO BID PRN PRN Reason: Constipation Sodium Chloride (Saline Flush) 10 ml FLUSH ASDIRECTED PRN PRN Reason: Keep Vein Open Warfarin Sodium (Pharmacy To Dose - Warfarin) 1 dose .XX ASDIRECTED [facility] Warfarin Sodium (Coumadin) 5 mg PO MOWEFR [facility] Last Admin: 08/10/16 18:20 Dose: 5 mg [facility]farin S[facility] ([facility]) [facility] Dis[facility] Medic[facility] Bupivacaine HCl (Marcaine 0.25%) Confirm Administered Dose 30 ml .ROUTE .STK- MED ONE Stop: 08/10/16 07:25 Last Admin: 08/10/16 10:21 Dose: 30 ml Cefazolin Sodium (Ancef) Confirm Administered Dose 2 gm .ROUTE .STK-MED ONE Stop: 08/10/16 07:25 Cefazolin Sodium (Ancef) Confirm Administered Dose 2 gm .ROUTE .STK-MED ONE Stop: 08/10/16 09:24 Last Admin: 08/10/16 10:17 Dose: 2 gm Morphine Sulfate 8 mg/Epinephrine HCl 0.3 mg/Cefuroxime Sodium 750 mg/Ketorolac Tromethamine 30 mg/Sodium Chloride 27.9 ml 0 mg .XX ONETIME ONE Stop: 08/10/16 09:31 Last Admin: 08/10/16 10:20 Dose: 788.3 mg Diphtheria/Tetanus/Acell Pertussis (Boostrix) 0.5 ml IM .ONCE ONE Stop: 08/10/16 09:12 Ephedrine Sulfate (Ephedrine In Ns) Confirm Administered Dose 25 mg .ROUTE .STK- MED ONE Stop: 08/10/16 10:29 Hydromorphone HCl (Dilaudid) 0.5 mg IVPUSH Q15M PRN PRN Reason: severe pain Stop: 08/10/16 11:27 Lactated Ringer's (Ringers, Lactated) 1,000 mls @ 125 mls/hr IV ASDIRECTED [facility] Last Admin: 08/10/16 07:45 Dose: 125 mls/hr Cefazolin Sodium/Dextrose 2 gm (/ Premix) 50 mls @ 100 mls/hr IV Q8H [facility] Stop: 08/10/16 23:44 Last Admin: 08/10/16 13:34 Dose: Not Given Lidocaine HCl (Xylocaine-Mpf 1%) Confirm Administered Dose 4 mls @ as directed .ROUTE .STK-MED ONE Stop: 08/10/16 07:34 Cefazolin Sodium/Dextrose 2 gm (/ Premix) 50 mls @ 100 mls/hr IV Q8H [facility] Stop: 08/11/16 07:59 Last Admin: 08/11/16 06:38 Dose: 100 mls/hr Lactated Ringer's (Ringers, Lactated) Confirm Administered Dose 2,000 mls @ as directed .ROUTE .STK-MED ONE Stop: 08/10/16 14:52 Iodine (Iodine 2% Mild Tincture) Confirm Administered Dose 30 ml .ROUTE .STK- MED ONE Stop: 08/10/16 07:25 Last Admin: 08/10/16 10:15 Dose: 18 ml Lidocaine/Sodium Bicarbonate (Buffered Lidocaine 1% In Ns 8.4%) 0.25 ml IV ONETIME PRN PRN Reason: Prior to IV Start Stop: 08/10/16 18:00 Last Admin: 08/10/16 07:44 Dose: 0.25 ml Midazolam HCl (Versed 1 Mg/Ml) Confirm Administered Dose 2 mg .ROUTE .STK-MED ONE Stop: 08/10/16 07:49 Morphine Sulfate (Duramorph Pf) Confirm Administered Dose 10 mg .ROUTE .STK-MED ONE Stop: 08/10/16 07:34 Naloxone HCl (Narcan) 0.1 mg IVPUSH Q5M PRN PRN Reason: Oversedation Stop: 08/10/16 07:26 Ondansetron HCl (Zofran) Confirm Administered Dose 4 mg .ROUTE .STK-MED ONE Stop: 08/10/16 09:24 Ondansetron HCl (Zofran) 4 mg IVPUSH ONETIME PRN PRN Reason: Nausea/Vomiting Propofol (Diprivan 20 Ml) Confirm Administered Dose 200 mg .ROUTE .STK-MED ONE Stop: 08/10/16 07:34 Propofol (Diprivan 20 Ml) Confirm Administered Dose 200 mg .ROUTE .STK-MED ONE Stop: 08/10/16 09:57 Scopolamine (Transderm-Scop) 1.5 mg TOP ONETIME ONE Stop: 08/11/16 09:31 Last Admin: 08/11/16 09:47 Dose: 1.5 mg Tranexamic Acid (Cyklokapron) Confirm Administered Dose 1,000 mg .ROUTE .STK- MED ONE Stop: 08/10/16 07:25 Last Admin: 08/10/16 10:25 Dose: 1,000 mg Warfarin Sodium (Pharmacy To Dose - Warfarin) 1 dose .XX ASDIRECTED VANDANA - Exam Wound/Incisions: dressing dry and intact General: alert, cooperative, no acute distress Lungs: Normal respiratory effort Extremities: normal pulses, no calf tenderness, other (NVS intact for RLE. Cris's negative.) - Problem List Review Problem List Initiated/Reviewed/Updated: Yes - My Orders Last 24 Hours: Active Orders 24 hr Category Date Time Status Communication Order [RC] ASDIRECTED Care 08/11/16 12:06 Active Communication Order [RC] QSHIFT Care 08/10/16 12:18 Active Insert Harkins Catheter [Insert Urinary Catheter] [OM.PC] Care 08/11/16 09:00 Ordered Q24H Docusate Sodium [Colace] Med 08/10/16 21:00 Active 100 mg PO BID Magnesium Rep Pharmacy to Dose [Pharmacy to Dose - Med 08/10/16 14:45 Active Magnesium Replacement] 1 dose .XX ASDIRECTED Metoprolol Tartrate [Lopressor] Med 08/10/16 14:38 Active 5 mg IVPUSH Q4H PRN Multivitamins,Therapeutic [Thera] Med 08/11/16 07:00 Active 1 each PO WITHBREAKFAST Potassium Rep Pharmacy to Dose [Pharmacy to Dose - Med 08/10/16 14:45 Active Potassium Replacement] 1 dose .XX ASDIRECTED Remove Patch Med 08/14/16 09:30 Once 0 ea TRDERM ONETIME ONE Warfarin Pharmacy to Dose [Pharmacy to Dose - Warfarin] Med 08/11/16 07:15 Active 1 dose .XX ASDIRECTED Warfarin [Coumadin] Med 08/10/16 18:00 Active 5 mg PO MOWEFR Warfarin [Coumadin] Med 08/11/16 18:00 Active 7.5 mg PO SUTUTHSA hydrALAZINE [Apresoline] Med 08/10/16 14:38 Active 20 mg IVPUSH Q4H PRN Pulse Oximetry Continuous Monitoring [OM.PC] Routine Oth 08/10/16 12:19 Active Medication Orders Bisacodyl (Dulcolax) 5 mg PO DAILY PRN PRN Reason: Constipation Last Admin: 08/11/16 09:47 Dose: 5 mg Diphenhydramine HCl (Benadryl) 12.5 mg IVPUSH Q6H PRN PRN Reason: pruritis Docusate Sodium (Colace) 100 mg PO BID [facility] Last Admin: 08/11/16 09:47 Dose: 100 mg Admin: 08/10/16 21:48 Dose: 100 mg Enoxaparin Sodium (Lovenox) 100 mg SUBCUT BID [facility] Last Admin: 08/11/16 09:47 Dose: 100 mg Admin: 08/10/16 21:48 Dose: 100 mg Admin: 08/10/16 14:47 Dose: Famotidine (Pepcid) 20 mg PO Q12H [facility] Last Admin: 08/11/16 06:38 Dose: 20 mg Admin: 08/10/16 18:20 Dose: 20 mg Admin: 08/10/16 12:14 Dose: Not Given Hydralazine HCl (Apresoline) 20 mg IVPUSH Q4H PRN PRN Reason: Hypertension Magnesium Hydroxide (Milk Of Magnesia) 30 ml PO BID PRN PRN Reason: Constipation Magnesium Sulfate (Pharmacy To Dose - Magnesium Replacement) 1 dose .XX ASDIRECTED [facility] Metoprolol Tartrate (Lopressor) 5 mg IVPUSH Q4H PRN PRN Reason: Tachycardia Miscellaneous Information (Remove Patch) 0 ea TRDERM ONETIME ONE Stop: 08/14/16 09:31 Morphine Sulfate (Morphine) 2 mg IVPUSH Q2H PRN PRN Reason: Breakthrough Pain Last Admin: 08/11/16 07:15 Dose: 2 mg Multivitamins (Thera) 1 each PO WITHBREAKFAST [facility] Last Admin: 08/11/16 06:37 Dose: 1 each Ondansetron HCl (Zofran) 4 mg IVPUSH Q6H PRN PRN Reason: Nausea/Vomiting Last Admin: 08/11/16 07:38 Dose: 4 mg Oxycodone/Acetaminophen (Percocet 325-5 Mg) 1 - 2 tab PO Q4H PRN PRN Reason: Pain Last Admin: 08/11/16 09:47 Dose: 1 tab Admin: 08/11/16 07:59 Dose: 1 tab Admin: 08/11/16 04:05 Dose: 2 tab Admin: 08/10/16 22:36 Dose: 2 tab Admin: 08/10/16 18:20 Dose: 1 tab Potassium Chloride (Pharmacy To Dose - Potassium Replacement) 1 dose .XX ASDIRECTED [facility] Senna (Senna) 8.6 mg PO BID PRN PRN Reason: Constipation Sodium Chloride (Saline Flush) 10 ml FLUSH ASDIRECTED PRN PRN Reason: Keep Vein Open Warfarin Sodium (Pharmacy To Dose - Warfarin) 1 dose .XX ASDIRECTED [facility] Warfarin Sodium (Coumadin) 5 mg PO MOWEFR [facility] Last Admin: 08/10/16 18:20 Dose: 5 mg Warfarin Sodium (Coumadin) 7.5 mg PO SUTUTHSA [facility] - Assessment Assessment (Free Text/Narrative):: POD#1 - right TKA - Plan Plan (Free Text/Narrative):: 1. Hgb 11.0 today. 2. Lovenox bridge. Coumadin initiated per Pharmacy protocol. 3. Discharge to home tomorrow. The pt requires monitoring re: O2 saturations and additional therapy. 4. Further orders per Hospitalist service. The pt's case was discussed with Dr. Chapa.
[2016-08-11] MEDS ORDERED: Warfarin 7.5 MG Tab PO SCH (18:00)
[2016-08-12] MEDS: Acetaminophen/oxyCODONE 325-5 MG Tab PO PRN ×3 (04:11→13:10)
[2016-08-12] MEDS: Famotidine 20 MG Tab PO SCH (06:15)
[2016-08-12] MEDS: Multivitamins,Therapeutic Tab PO SCH (06:15)
--- NOTE | 2016-08-12 07:02 | PCM.CONSN ---
- General Info Date of Service: 08/12/16 Admission Dx/Problem (Free Text): Admission Diagnosis/Problem Admission Diagnosis/Problem Osteoarthritis of knee POD #[address] Chapa Pain under better control today. Will need lovenox bridge for Coumadin which was restarted, lovenox teaching prior to DC. Plans for DC home today. Otherwise VSS, labs stable. Functional Status: Reports: pain controlled, tolerating diet, ambulating, urinating - Review of Systems General: Reports: No Symptoms HEENT: Reports: no symptoms Pulmonary: Reports: no symptoms Cardiovascular: Reports: No Symptoms Gastrointestinal: Reports: No symptoms Genitourinary: Reports: no symptoms Musculoskeletal: Reports: leg pain Skin: Reports: no symptoms Neurological: Reports: No Symptoms Psychiatric: Reports: no symptoms - Patient Data Vitals - most recent: Last Vital Signs Temp 98.8 F 08/11/16 21:42 Pulse 79 08/11/16 21:42 Resp 16 08/11/16 21:42 BP 151/60 H 08/11/16 21:42 Pulse Ox 94 L 08/11/16 21:42 Weight - most recent: 241 lb 1.6 oz I&O - last 24 hours: Intake & Output 08/11/16 08/11/16 08/12/16 14:59 22:59 06:59 Intake Total 0 720 400 Output Total 500 1100 Balance 0 220 -700 Lab Results last 24 hrs: Laboratory Results - last 24 hr 08/11/16 08/11/16 Range/Units 05:16 05:16 PT 10.6 (8.0-13.0) SECONDS INR 0.97 Sodium 137 (136-145) mEq/L Potassium 4.1 (3.5-5.1) mEq/L Chloride 105 (98-107) mEq/L Carbon Dioxide 26 (21-32) mEq/L Anion Gap 10.1 (5-15) BUN 12 (7-18) mg/dL Creatinine 0.8 (0.55-1.02) mg/dL Est Cr Clr Drug Dosing 51.92 mL/min Estimated GFR (MDRD) > 60 (>60) mL/min BUN/Creatinine Ratio 15.0 (14-18) Glucose 114 (83-115) mg/dL Calcium 8.2 L (8.5-10.1) mg/dL Total Bilirubin 0.9 (0.2-1.0) mg/dL AST 18 (15-37) U/L ALT 16 (14-59) U/L Alkaline Phosphatase 61 (46-116) U/L Total Protein 5.9 L (6.4-8.2) g/dl Albumin 2.6 L (3.4-5.0) g/dl Globulin 3.3 gm/dL Albumin/Globulin Ratio 0.8 L (1-2) Med Orders - Current: Current Medications Anastrozole (Arimidex) 1 mg PO DAILY [facility] Bisacodyl (Dulcolax) 5 mg PO DAILY PRN PRN Reason: Constipation Last Admin: 08/11/16 09:47 Dose: 5 mg Diphenhydramine HCl (Benadryl) 12.5 mg IVPUSH Q6H PRN PRN Reason: pruritis Last Admin: 08/11/16 21:43 Dose: 12.5 mg Docusate Sodium (Colace) 100 mg PO BID [facility] Last Admin: 08/11/16 21:42 Dose: 100 mg Enoxaparin Sodium (Lovenox) 100 mg SUBCUT BID [facility] Last Admin: 08/11/16 21:40 Dose: 100 mg Famotidine (Pepcid) 20 mg PO Q12H [facility] Last Admin: 08/12/16 06:15 Dose: 20 mg Gabapentin (Neurontin) 300 mg PO TID [facility] Guaifenesin (Mucinex) 1,200 mg PO DAILY [facility] Hydralazine HCl (Apresoline) 20 mg IVPUSH Q4H PRN PRN Reason: Hypertension Magnesium Hydroxide (Milk Of Magnesia) 30 ml PO BID PRN PRN Reason: Constipation Magnesium Sulfate (Pharmacy To Dose - Magnesium Replacement) 1 dose .XX ASDIRECTED [facility] Metoprolol Succinate (Toprol Xl) 50 mg PO 1600 [facility] Metoprolol Tartrate (Lopressor) 5 mg IVPUSH Q4H PRN PRN Reason: Tachycardia Miscellaneous Information (Remove Patch) 0 ea TRDERM ONETIME ONE Stop: 08/14/16 09:31 Morphine Sulfate (Morphine) 2 mg IVPUSH Q2H PRN PRN Reason: Breakthrough Pain Last Admin: 08/11/16 17:31 Dose: 2 mg Non-Formulary Medication (Calcium Carb & Citrate/Vit D3 [Calcium + D3 Er Tablet] ) 1 tab PO BID [facility] Non-Formulary Medication (Multivitamin) 1 tab PO DAILY [facility] Ondansetron HCl (Zofran) 4 mg IVPUSH Q6H PRN PRN Reason: Nausea/Vomiting Last Admin: 08/11/16 17:25 Dose: 4 mg Oxycodone/Acetaminophen (Percocet 325-5 Mg) 1 - 2 tab PO Q4H PRN PRN Reason: Pain Last Admin: 08/12/16 04:11 Dose: 2 tab Potassium Chloride (Pharmacy To Dose - Potassium Replacement) 1 dose .XX ASDIRECTED [facility] Potassium Chloride (Klor-Con 10) 10 meq PO DAILY [facility] Senna (Senna) 8.6 mg PO BID PRN PRN Reason: Constipation Last Admin: 08/11/16 21:42 Dose: 8.6 mg Sodium Chloride (Saline Flush) 10 ml FLUSH ASDIRECTED PRN PRN Reason: Keep Vein Open Warfarin Sodium (Pharmacy To Dose - Warfarin) 1 dose .XX ASDIRECTED [facility] Warfarin Sodium (Coumadin) 5 mg PO MOWEFR [facility] Last Admin: 08/10/16 18:20 Dose: 5 mg Warfarin Sodium (Coumadin) 7.5 mg PO SUTUTHSA [facility] Last Admin: 08/11/16 17:46 Dose: 7.5 mg Discontinued Medications Bupivacaine HCl (Marcaine 0.25%) Confirm Administered Dose 30 ml .ROUTE .STK- MED ONE Stop: 08/10/16 07:25 Last Admin: 08/10/16 10:21 Dose: 30 ml Cefazolin Sodium (Ancef) Confirm Administered Dose 2 gm .ROUTE .STK-MED ONE Stop: 08/10/16 07:25 Cefazolin Sodium (Ancef) Confirm Administered Dose 2 gm .ROUTE .STK-MED ONE Stop: 08/10/16 09:24 Last Admin: 08/10/16 10:17 Dose: 2 gm Morphine Sulfate 8 mg/Epinephrine HCl 0.3 mg/Cefuroxime Sodium 750 mg/Ketorolac Tromethamine 30 mg/Sodium Chloride 27.9 ml 0 mg .XX ONETIME ONE Stop: 08/10/16 09:31 Last Admin: 08/10/16 10:20 Dose: 788.3 mg Diphtheria/Tetanus/Acell Pertussis (Boostrix) 0.5 ml IM .ONCE ONE Stop: 08/10/16 09:12 Ephedrine Sulfate (Ephedrine In Ns) Confirm Administered Dose 25 mg .ROUTE .STK- MED ONE Stop: 08/10/16 10:29 Hydromorphone HCl (Dilaudid) 0.5 mg IVPUSH Q15M PRN PRN Reason: severe pain Stop: 08/10/16 11:27 Lactated Ringer's (Ringers, Lactated) 1,000 mls @ 125 mls/hr IV ASDIRECTED [facility] Last Admin: 08/10/16 07:45 Dose: 125 mls/hr Cefazolin Sodium/Dextrose 2 gm (/ Premix) 50 mls @ 100 mls/hr IV Q8H [facility] Stop: 08/10/16 23:44 Last Admin: 08/10/16 13:34 Dose: Not Given Lidocaine HCl (Xylocaine-Mpf 1%) Confirm Administered Dose 4 mls @ as directed .ROUTE .STK-MED ONE Stop: 08/10/16 07:34 Cefazolin Sodium/Dextrose 2 gm (/ Premix) 50 mls @ 100 mls/hr IV Q8H [facility] Stop: 08/11/16 07:59 Last Admin: 08/11/16 06:38 Dose: 100 mls/hr Lactated Ringer's (Ringers, Lactated) Confirm Administered Dose 2,000 mls @ as directed .ROUTE .STK-MED ONE Stop: 08/10/16 14:52 Iodine (Iodine 2% Mild Tincture) Confirm Administered Dose 30 ml .ROUTE .STK- MED ONE Stop: 08/10/16 07:25 Last Admin: 08/10/16 10:15 Dose: 18 ml Lidocaine/Sodium Bicarbonate (Buffered Lidocaine 1% In Ns 8.4%) 0.25 ml IV ONETIME PRN PRN Reason: Prior to IV Start Stop: 08/10/16 18:00 Last Admin: 08/10/16 07:44 Dose: 0.25 ml Midazolam HCl (Versed 1 Mg/Ml) Confirm Administered Dose 2 mg .ROUTE .STK-MED ONE Stop: 08/10/16 07:49 Morphine Sulfate (Duramorph Pf) Confirm Administered Dose 10 mg .ROUTE .STK-MED ONE Stop: 08/10/16 07:34 [facility]) [facility] Last Admin: 08/12/16 06:15 Dose: 1 each Naloxone HCl (Narcan) 0.1 mg IVPUSH Q5M PRN PRN Reason: Oversedation Stop: 08/10/16 07:26 Ondansetron HCl (Zofran) Confirm Administered Dose 4 mg .ROUTE .STK-MED ONE Stop: 08/10/16 09:24 Ondansetron HCl (Zofran) 4 mg IVPUSH ONETIME PRN PRN Reason: Nausea/Vomiting Propofol (Diprivan 20 Ml) Confirm Administered Dose 200 mg .ROUTE .STK-MED ONE Stop: 08/10/16 07:34 Propofol (Diprivan 20 Ml) Confirm Administered Dose 200 mg .ROUTE .STK-MED ONE Stop: 08/10/16 09:57 Scopolamine (Transderm-Scop) 1.5 mg TOP ONETIME ONE Stop: 08/11/16 09:31 Last Admin: 08/11/16 09:47 Dose: 1.5 mg Tranexamic Acid (Cyklokapron) Confirm Administered Dose 1,000 mg .ROUTE .STK- MED ONE Stop: 08/10/16 07:25 Last Admin: 08/10/16 10:25 Dose: 1,000 mg Warfarin Sodium (Pharmacy To Dose - Warfarin) 1 dose .XX ASDIRECTED [facility] - Exam Quality Assessment: DVT prophylaxis. No: supplemental oxygen General: alert, oriented, cooperative, no acute distress HEENT: Pupils equal, Pupils reactive, EOMI, Mucous membr. moist/pink Neck: supple Lungs: Clear to auscultation, Normal respiratory effort Cardiovascular: Regular Rate, Regular Rhythm Abdomen: bowel sounds present, soft, no tenderness, no distension (Female) Exam: Deferred Extremities: other (teds/SCD's) Peripheral Pulses: 1+: Dorsalis Pedis (L), Dorsalis Pedis (R) Skin: warm, dry Wound/Incisions: dressing dry and intact Neurological: no new focal deficit Psy/Mental Status: alert, normal affect, normal mood Consult PN Assessment/Plan POD#: 2 Procedures: Procedures ASSAY OF CREATININE (05/18/16) ASSAY OF MAGNESIUM (07/27/15) ASSAY OF PHOSPHORUS (03/11/15) ASSAY OF TROPONIN QUANT (05/14/15) BIOPSY/REMOVAL LYMPH NODES (03/11/15) BX BREAST 1ST LESION STRTCTC (02/12/15) CHEST X-RAY 1 VIEW FRONTAL (05/14/15) COMPLETE CBC W/AUTO DIFF WBC (07/27/15) COMPREHEN METABOLIC PANEL (07/27/15) CT ANGIOGRAPHY CHEST (05/14/15) CYTOGENETICS 25-99 (02/12/15) CYTOGENETICS DNA PROBE (02/12/15) DESTRUCT B9 LESION 1-14 (03/11/15) DXA BONE DENSITY AXIAL (05/25/16) ELECTROCARDIOGRAM TRACING (05/14/15) EMERGENCY DEPT VISIT (07/27/15) EMERGENCY DEPT VISIT (05/14/15) FIBRIN DEGRADATION QUANT (05/14/15) FLUOROSCOPE EXAMINATION (05/10/15) HYDRATION IV INFUSION INIT (07/27/15) IMMUNOHISTO ANTB 1ST STAIN (03/11/15) IMMUNOHISTO ANTIBODY SLIDE (02/12/15) INSERT TUNNELED CV CATH (05/10/15) MRI BRAIN STEM W/O & W/DYE (05/18/16) MRI LUMBAR SPINE W/O DYE (04/27/14) OT EVALUATION (03/11/15) PARTIAL MASTECTOMY (03/11/15) PATH CONSULT INTRAOP 1 BLOC (03/11/15) PATH CONSULT INTRAOP ADDL (03/11/15) PERQ DEVICE BREAST 1ST IMAG (03/11/15) PROTHROMBIN TIME (07/27/15) PT EVALUATION (03/11/15) RA TRACER ID OF SENTINL NODE (03/11/15) ROUTINE VENIPUNCTURE (05/18/16) THER/PROPH/DIAG INJ SC/IM (05/14/15) TISSUE EXAM BY PATHOLOGIST (03/11/15) TISSUE EXAM BY PATHOLOGIST (03/11/15) TISSUE EXAM BY PATHOLOGIST (02/12/15) TTE W/DOPPLER COMPLETE (03/11/15) ULTRASOUND BREAST COMPLETE (10/31/15) URINALYSIS AUTO W/SCOPE (03/11/15) X-RAY EXAM BREAST SPECIMEN (03/11/15) (1) S/P total knee arthroplasty SNOMED Code(s): 2518324447861, 845850354, 3791944462580 Code(s): Z96.659 - PRESENCE OF UNSPECIFIED ARTIFICIAL KNEE JOINT Priority: High Current Visit: Yes Qualifiers: Laterality: right Qualified Code(s): Z96.651 - Presence of right artificial knee joint (2) Osteoarthritis SNOMED Code(s): 014353892 Code(s): M19.90 - UNSPECIFIED OSTEOARTHRITIS, UNSPECIFIED SITE Priority: High Current Visit: Yes Qualifiers: Osteoarthritis location: knee Osteoarthritis type: primary Laterality: right Qualified Code(s): M17.11 - Unilateral primary osteoarthritis, right knee Problem List Initiated/Reviewed/Updated: Yes My Orders last 24 hours: My Active Orders 08/12/16 09:00 Anastrozole [Arimidex] 1 mg PO DAILY Calcium Carb & Citrate/Vit D3 [Calcium + D3 ER Tablet] 1 tab PO BID Gabapentin [Neurontin] 300 mg PO TID Multivitamin 1 tab PO DAILY Potassium Chloride [Klor-Con 10] 10 meq PO DAILY guaiFENesin [Mucinex] 1,200 mg PO DAILY 08/12/16 16:00 Metoprolol Succinate [Toprol XL] 50 mg PO 1600 08/14/16 09:30 Remove Patch 0 ea TRDERM ONETIME ONE Plan: Assessment: S/p Right Total Knee Arthroplasty, POD #2, Dr. Chapa - DVT and Pain Management as per primary team - PT/OT - IS/RT - Hgb 10.8 today- stable - VSS; on RA now - Doing well overall Chronic: HTN- stable; cont home meds HLD ASVD PAF on Warfarin; resume Coumadin- INR 0.98 today, bridge with lovenox- lovenox teaching prior to DC, INR on Wednesday08/14/16 with results to PCP, lovenox until then and until further instruction from PCP. PMR Chronic LBP Sub-acrominal Impingement Hx/o Thrombophlebitis Hx/o BRCA S/p Chemo-radiation Therapy 2015 Obesity with BMI 39.5 Other: DVT/GI prophylax CM/SW for assistance with DC planning-- plans discharge home with family today. Patient is Full Code status
[2016-08-12] MEDS: Docusate Sodium 100 MG Cap PO SCH (08:34)
[2016-08-12] MEDS: Enoxaparin 100 MG/1 ML Syringe SUBCUT SCH (08:34)
[2016-08-12] MEDS ORDERED: Multivitamins,Therapeutic Tab PO SCH (09:00)
[2016-08-12] MEDS ORDERED: Anastrozole 1 MG Tab PO SCH (09:00)
[2016-08-12] MEDS ORDERED: guaiFENesin 600 MG Tab.ER PO SCH (09:00)
[2016-08-12] MEDS ORDERED: Gabapentin 300 MG Cap PO SCH (09:00)
[2016-08-12] MEDS ORDERED: Calcium Carbonate/Vitamin D3 1500 MG-200 Units Tab PO SCH (09:00)
[2016-08-12] MEDS ORDERED: Potassium Chloride 10 MEQ Tab.ER PO SCH (09:00)
--- NOTE | 2016-08-12 09:32 | PCM.SURGPN ---
- General Info Date of Service: 08/12/16 POD#: 2 Functional Status: Reports: pain controlled, tolerating diet, ambulating, urinating. Denies: new symptoms - Review of Systems Musculoskeletal: Reports: other (The pt has progressed with P.T. and O.T. The pt's granddaughter was present today and will be assisting pt at home.) - Patient Data Vitals - most recent: Last Vital Signs Temp 99.3 F 08/12/16 08:00 Pulse 83 08/12/16 08:00 Resp 16 08/12/16 08:00 BP 138/58 L 08/12/16 08:00 Pulse Ox 92 L 08/12/16 08:00 Weight - most recent: 241 lb 1.6 oz I&O - last 24 hours: Intake & Output 08/11/16 08/12/16 08/12/16 22:59 06:59 14:59 Intake Total 720 400 Output Total 500 1100 Balance 220 -700 Lab Results last 24 hrs: Laboratory Results - last 24 hr 08/12/16 08/12/16 08/12/16 Range/Units 08:30 08:30 08:30 WBC 7.05 (3.98-10.04) K/mm3 RBC 3.47 L (3.98-5.22) M/mm3 Hgb 10.8 L (11.2-15.7) gm/L Hct 33.6 L (34.1-44.9) % MCV 96.8 H (79.4-94.8) fl MCH 31.1 (25.6-32.2) pg MCHC 32.1 L (32.2-35.5) g/dl RDW Std Deviation 45.3 (36.4-46.3) fL Plt Count 165 L (182-369) K/mm3 MPV 8.4 L (9.4-12.3) fl Neut % (Auto) 72.6 H (34.0-71.1) % Lymph % (Auto) 10.4 L (19.3-51.7) % [place] % (Auto) 14.2 H (4.7-12.5) % Eos % (Auto) 2.6 (0.7-5.8) Baso % (Auto) 0.1 (0.1-1.2) % Neut # (Auto) 5.12 (1.56-6.13) K/mm3 Lymph # (Auto) 0.73 L (1.18-3.74) K/mm3 [place] # (Auto) 1.00 H (0.24-0.36) K/mm3 Eos # (Auto) 0.18 (0.04-0.36) K/mm3 Baso # (Auto) 0.01 (0.01-0.08) K/mm3 PT 10.7 (8.0-13.0) SECONDS INR 0.98 Sodium 137 (136-145) mEq/L Potassium 4.2 (3.5-5.1) mEq/L Chloride 103 (98-107) mEq/L Carbon Dioxide 28 (21-32) mEq/L Anion Gap 10.2 (5-15) BUN 10 (7-18) mg/dL Creatinine 0.8 (0.55-1.02) mg/dL Est Cr Clr Drug Dosing 51.92 mL/min Estimated GFR (MDRD) > 60 (>60) mL/min BUN/Creatinine Ratio 12.5 L (14-18) Glucose 116 H (83-115) mg/dL Calcium 8.6 (8.5-10.1) mg/dL Med Orders - Current: Current Medications Anastrozole (Arimidex) 1 mg PO DAILY [facility] Bisacodyl (Dulcolax) 5 mg PO DAILY PRN PRN Reason: Constipation Last Admin: 08/11/16 09:47 Dose: 5 mg Calcium Carbonate (Calcium Carbonate/Vitamin D 1500 Mg-200 Unit) 1 tab PO BID [facility] Last Admin: 08/12/16 08:33 Dose: 1 tab Diphenhydramine HCl (Benadryl) 12.5 mg IVPUSH Q6H PRN PRN Reason: pruritis Last Admin: 08/11/16 21:43 Dose: 12.5 mg Docusate Sodium (Colace) 100 mg PO BID [facility] Last Admin: 08/12/16 08:34 Dose: 100 mg Enoxaparin Sodium (Lovenox) 100 mg SUBCUT BID [facility] Last Admin: 08/12/16 08:34 Dose: 100 mg Famotidine (Pepcid) 20 mg PO Q12H [facility] Last Admin: 08/12/16 06:15 Dose: 20 mg Gabapentin (Neurontin) 300 mg PO TID [facility] Last Admin: 08/12/16 08:33 Dose: 300 mg Guaifenesin (Mucinex) 1,200 mg PO DAILY [facility] Last Admin: 08/12/16 08:32 Dose: 1,200 mg Hydralazine HCl (Apresoline) 20 mg IVPUSH Q4H PRN PRN Reason: Hypertension Magnesium Hydroxide (Milk Of Magnesia) 30 ml PO BID PRN PRN Reason: Constipation Magnesium Sulfate (Pharmacy To Dose - Magnesium Replacement) 1 dose .XX ASDIRECTED [facility] Metoprolol Succinate (Toprol Xl) 50 mg PO DAILY@1600 [facility] Metoprolol Tartrate (Lopressor) 5 mg IVPUSH Q4H PRN PRN Reason: Tachycardia Miscellaneous Information (Remove Patch) 0 ea TRDERM ONETIME ONE Stop: 08/14/16 09:31 Morphine Sulfate (Morphine) 2 mg IVPUSH Q2H PRN PRN Reason: Breakthrough Pain Last Admin: 08/11/16 17:31 Dose: 2 mg Multivitamins (Thera) 1 each PO DAILY [facility] Last Admin: 08/12/16 08:33 Dose: 1 each Ondansetron HCl (Zofran) 4 mg IVPUSH Q6H PRN PRN Reason: Nausea/Vomiting Last Admin: 08/11/16 17:25 Dose: 4 mg Oxycodone/Acetaminophen (Percocet 325-5 Mg) 1 - 2 tab PO Q4H PRN PRN Reason: Pain Last Admin: 08/12/16 08:29 Dose: 2 tab Potassium Chloride (Pharmacy To Dose - Potassium Replacement) 1 dose .XX ASDIRECTED [facility] Potassium Chloride (Klor-Con 10) 10 meq PO DAILY [facility] Last Admin: 08/12/16 08:34 Dose: 10 meq Senna (Senna) 8.6 mg PO BID PRN PRN Reason: Constipation Last Admin: 08/11/16 21:42 Dose: 8.6 mg Sodium Chloride (Saline Flush) 10 ml FLUSH ASDIRECTED PRN PRN Reason: Keep Vein Open Warfarin Sodium (Pharmacy To Dose - Warfarin) 1 dose .XX ASDIRECTED [facility] Warfarin Sodium (Coumadin) 5 mg PO MOWEFR [facility] Last Admin: 08/10/16 18:20 Dose: 5 mg Warfarin Sodium (Coumadin) 7.5 mg PO SUTUTHSA [facility] Last Admin: 08/11/16 17:46 Dose: 7.5 mg Discontinued Medications Bupivacaine HCl (Marcaine 0.25%) Confirm Administered Dose 30 ml .ROUTE .STK- MED ONE Stop: 08/10/16 07:25 Last Admin: 08/10/16 10:21 Dose: 30 ml Cefazolin Sodium (Ancef) Confirm Administered Dose 2 gm .ROUTE .STK-MED ONE Stop: 08/10/16 07:25 Cefazolin Sodium (Ancef) Confirm Administered Dose 2 gm .ROUTE .STK-MED ONE Stop: 08/10/16 09:24 Last Admin: 08/10/16 10:17 Dose: 2 gm Morphine Sulfate 8 mg/Epinephrine HCl 0.3 mg/Cefuroxime Sodium 750 mg/Ketorolac Tromethamine 30 mg/Sodium Chloride 27.9 ml 0 mg .XX ONETIME ONE Stop: 08/10/16 09:31 Last Admin: 08/10/16 10:20 Dose: 788.3 mg Diphtheria/Tetanus/Acell Pertussis (Boostrix) 0.5 ml IM .ONCE ONE Stop: 08/10/16 09:12 Ephedrine Sulfate (Ephedrine In Ns) Confirm Administered Dose 25 mg .ROUTE .STK- MED ONE Stop: 08/10/16 10:29 Hydromorphone HCl (Dilaudid) 0.5 mg IVPUSH Q15M PRN PRN Reason: severe pain Stop: 08/10/16 11:27 Lactated Ringer's (Ringers, Lactated) 1,000 mls @ 125 mls/hr IV ASDIRECTED [facility] Last Admin: 08/10/16 07:45 Dose: 125 mls/hr Cefazolin Sodium/Dextrose 2 gm (/ Premix) 50 mls @ 100 mls/hr IV Q8H [facility] Stop: 08/10/16 23:44 Last Admin: 08/10/16 13:34 Dose: Not Given Lidocaine HCl (Xylocaine-Mpf 1%) Confirm Administered Dose 4 mls @ as directed .ROUTE .STK-MED ONE Stop: 08/10/16 07:34 Cefazolin Sodium/Dextrose 2 gm (/ Premix) 50 mls @ 100 mls/hr IV Q8H [facility] Stop: 08/11/16 07:59 Last Admin: 08/11/16 06:38 Dose: 100 mls/hr Lactated Ringer's (Ringers, Lactated) Confirm Administered Dose 2,000 mls @ as directed .ROUTE .STK-MED ONE Stop: 08/10/16 14:52 Iodine (Iodine 2% Mild Tincture) Confirm Administered Dose 30 ml .ROUTE .STK- MED ONE Stop: 08/10/16 07:25 Last Admin: 08/10/16 10:15 Dose: 18 ml Lidocaine/Sodium Bicarbonate (Buffered Lidocaine 1% In Ns 8.4%) 0.25 ml IV ONETIME PRN PRN Reason: Prior to IV Start Stop: 08/10/16 18:00 Last Admin: 08/10/16 07:44 Dose: 0.25 ml Midazolam HCl (Versed 1 Mg/Ml) Confirm Administered Dose 2 mg .ROUTE .STK-MED ONE Stop: 08/10/16 07:49 Morphine Sulfate (Duramorph Pf) Confirm Administered Dose 10 mg .ROUTE .STK-MED ONE Stop: 08/10/16 07:34 Multivitamins (Thera) 1 each PO WITHBREAKFAST [facility] Last Admin: 08/12/16 06:15 Dose: 1 each Naloxone HCl (Narcan) 0.1 mg IVPUSH Q5M PRN PRN Reason: Oversedation Stop: 08/10/16 07:26 Ondansetron HCl (Zofran) Confirm Administered Dose 4 mg .ROUTE .STK-MED ONE Stop: 08/10/16 09:24 Ondansetron HCl (Zofran) 4 mg IVPUSH ONETIME PRN PRN Reason: Nausea/Vomiting Propofol (Diprivan 20 Ml) Confirm Administered Dose 200 mg .ROUTE .STK-MED ONE Stop: 08/10/16 07:34 Propofol (Diprivan 20 Ml) Confirm Administered Dose 200 mg .ROUTE .STK-MED ONE Stop: 08/10/16 09:57 Scopolamine (Transderm-Scop) 1.5 mg TOP ONETIME ONE Stop: 08/11/16 09:31 Last Admin: 08/11/16 09:47 Dose: 1.5 mg Tranexamic Acid (Cyklokapron) Confirm Administered Dose 1,000 mg .ROUTE .STK- MED ONE Stop: 08/10/16 07:25 Last Admin: 08/10/16 10:25 Dose: 1,000 mg Warfarin Sodium (Pharmacy To Dose - Warfarin) 1 dose .XX ASDIRECTED [facility] - Exam Wound/Incisions: dressing dry and intact General: alert, cooperative, no acute distress Lungs: Normal respiratory effort Extremities: normal pulses, no calf tenderness (NVS intact for BLE. Cris's negative.) - Problem List Review Problem List Initiated/Reviewed/Updated: Yes - My Orders Last 24 Hours: Active Orders 24 hr Category Date Time Status Communication Order [RC] ASDIRECTED Care 08/11/16 12:06 Active Anastrozole [Arimidex] Med 08/12/16 09:00 Active 1 mg PO DAILY Calcium Carbonate/Vitamin D3 [Calcium Carbonate/Vitamin Med 08/12/16 09:00 Active D 1500 MG-200 Unit] 1 tab PO BID Gabapentin [Neurontin] Med 08/12/16 09:00 Active 300 mg PO TID Metoprolol Succinate [Toprol XL] Med 08/12/16 16:00 Active 50 mg PO DAILY@1600 Multivitamins,Therapeutic [Thera] Med 08/12/16 09:00 Active 1 each PO DAILY Potassium Chloride [Klor-Con 10] Med 08/12/16 09:00 Active 10 meq PO DAILY Remove Patch Med 08/14/16 09:30 Once 0 ea TRDERM ONETIME ONE Warfarin [Coumadin] Med 08/11/16 18:00 Active 7.5 mg PO SUTUTHSA guaiFENesin [Mucinex] Med 08/12/16 09:00 Active 1,200 mg PO DAILY Medication Orders Anastrozole (Arimidex) 1 mg PO DAILY [facility] Bisacodyl (Dulcolax) 5 mg PO DAILY PRN PRN Reason: Constipation Last Admin: 08/11/16 09:47 Dose: 5 mg Calcium Carbonate (Calcium Carbonate/Vitamin D 1500 Mg-200 Unit) 1 tab PO BID [facility] Last Admin: 08/12/16 08:33 Dose: 1 tab Diphenhydramine HCl (Benadryl) 12.5 mg IVPUSH Q6H PRN PRN Reason: pruritis Last Admin: 08/11/16 21:43 Dose: 12.5 mg Docusate Sodium (Colace) 100 mg PO BID [facility] Last Admin: 08/12/16 08:34 Dose: 100 mg Admin: 08/11/16 21:42 Dose: 100 mg Admin: 08/11/16 09:47 Dose: 100 mg Admin: 08/10/16 21:48 Dose: 100 mg Enoxaparin Sodium (Lovenox) 100 mg SUBCUT BID [facility] Last Admin: 08/12/16 08:34 Dose: 100 mg Admin: 08/11/16 21:40 Dose: 100 mg Admin: 08/11/16 09:47 Dose: 100 mg Admin: 08/10/16 21:48 Dose: 100 mg Admin: 08/10/16 14:47 Dose: Famotidine (Pepcid) 20 mg PO Q12H [facility] Last Admin: 08/12/16 06:15 Dose: 20 mg Admin: 08/11/16 18:58 Dose: Admin: 08/11/16 17:25 Dose: 20 mg Admin: 08/11/16 06:38 Dose: 20 mg Admin: 08/10/16 18:20 Dose: 20 mg Admin: 08/10/16 12:14 Dose: Not Given Gabapentin (Neurontin) 300 mg PO TID [facility] Last Admin: 08/12/16 08:33 Dose: 300 mg Guaifenesin (Mucinex) 1,200 mg PO DAILY [facility] Last Admin: 08/12/16 08:32 Dose: 1,200 mg Hydralazine HCl (Apresoline) 20 mg IVPUSH Q4H PRN PRN Reason: Hypertension Magnesium Hydroxide (Milk Of Magnesia) 30 ml PO BID PRN PRN Reason: Constipation Magnesium Sulfate (Pharmacy To Dose - Magnesium Replacement) 1 dose .XX ASDIRECTED [facility] Metoprolol Succinate (Toprol Xl) 50 mg PO DAILY@1600 [facility] Metoprolol Tartrate (Lopressor) 5 mg IVPUSH Q4H PRN PRN Reason: Tachycardia Miscellaneous Information (Remove Patch) 0 ea TRDERM ONETIME ONE Stop: 08/14/16 09:31 Morphine Sulfate (Morphine) 2 mg IVPUSH Q2H PRN PRN Reason: Breakthrough Pain Last Admin: 08/11/16 17:31 Dose: 2 mg Admin: 08/11/16 07:15 Dose: 2 mg Multivitamins (Thera) 1 each PO DAILY [facility] Last Admin: 08/12/16 08:33 Dose: 1 each Ondansetron HCl (Zofran) 4 mg IVPUSH Q6H PRN PRN Reason: Nausea/Vomiting Last Admin: 08/11/16 17:25 Dose: 4 mg Admin: 08/11/16 07:38 Dose: 4 mg Oxycodone/Acetaminophen (Percocet 325-5 Mg) 1 - 2 tab PO Q4H PRN PRN Reason: Pain Last Admin: 08/12/16 08:29 Dose: 2 tab Admin: 08/12/16 04:11 Dose: 2 tab Admin: 08/11/16 21:41 Dose: 2 tab Admin: 08/11/16 17:25 Dose: 2 tab Admin: 08/11/16 13:48 Dose: 2 tab Admin: 08/11/16 09:47 Dose: 1 tab Admin: 08/11/16 07:59 Dose: 1 tab Admin: 08/11/16 04:05 Dose: 2 tab Admin: 08/10/16 22:36 Dose: 2 tab Admin: 08/10/16 18:20 Dose: 1 tab Potassium Chloride (Pharmacy To Dose - Potassium Replacement) 1 dose .XX ASDIRECTED [facility] Potassium Chloride (Klor-Con 10) 10 meq PO DAILY [facility] Last Admin: 08/12/16 08:34 Dose: 10 meq Senna (Senna) 8.6 mg PO BID PRN PRN Reason: Constipation Last Admin: 08/11/16 21:42 Dose: 8.6 mg Sodium Chloride (Saline Flush) 10 ml FLUSH ASDIRECTED PRN PRN Reason: Keep Vein Open Warfarin Sodium (Pharmacy To Dose - Warfarin) 1 dose .XX ASDIRECTED [facility] Warfarin Sodium (Coumadin) 5 mg PO MOWEFR [facility] Last Admin: 08/10/16 18:20 Dose: 5 mg Warfarin Sodium (Coumadin) 7.5 mg PO SUTUTHSA [facility] Last Admin: 08/11/16 17:46 Dose: 7.5 mg - Assessment Assessment (Free Text/Narrative):: POD#2 - right TKA - Plan Plan (Free Text/Narrative):: 1. Discharge to home today. The pt's granddaughter will be assisting her at home. 2. Percocet for pain management at home. 3. The pt will bridge with Lovenox until Coumadin therapeutic and the pt will have f/u PT/INR as per Hospitalist instruction. 4. Follow-up at outpatient Clinic next week. The pt's case was discussed with Dr. Chapa.
--- NOTE | 2016-08-12 09:34 | PCM.DCSUM1 ---
Discharge Summary - Hospital Course Brief History: Adele is a 75 to female who underwent right TKA with Dr. Chapa on 08-10-2016 . The procedure was completed under spinal anesthesia with MAC. The pt tolerated the procedure well and was admitted to the Medical-Surgical Unit. Medical management was provided by the Hospitalist service. The pt's Hospital course was uneventful. The pt's Hgb on POD#1 was 11.0. The pt received Lovenox bridging therapy and Coumadin was restarted as per Hospitalist instructions. SCDs and TEDs were also ordered for DVT prophylaxis. A Mepilex dressing was placed at the incision site at the time of surgery and remained clean and dry. The pt participated in P.T. and O.T. and progressed well. On POD#2, the pt was deemed appropriate to discharge to home with family members. - Discharge Data Discharge Date: 08/12/16 Discharge Disposition: Home, Self-Care 01 Condition: Good - Patient Summary/Data Consults: Consultations 08/10/16 07:10 Consult to Case Management [CONS] Routine Consult to Physician [CONS] Routine OT Evaluation and Treatment [CONS] Routine 08/10/16 07:16 PT Evaluation and Treatment [CONS] Routine - Patient Instructions Diet: Usual Diet as Tolerated Activity: Apply Ice, As Tolerated, Elevate Extremity, Full Weight Bearing Driving: Do Not Drive Showering/Bathing: May Shower Wound/Incision Care: Keep Operative Site/Wound Site Clean and Dry, Do NOT Change Dressing Notify Provider of: Fever, Increased Pain, Swelling and Redness, Drainage, Nausea and/or Vomiting Other/Special Instructions: Please get up and moving around every hour while awake. This helps to prevent blood clots. Please use your walker and have help with mobility as needed. Continue with the blood thinner medication and have a follow-up with your primary doctor to ensure your values are in the acceptable ranges. You may schedule for P.T. Use the pain medication as needed. The medication may cause drowsiness and constipation. Contact your primary care provider for instructions if you are constipated. You may use a stool softener like docusate sodium or Colace 100mg twice daily and/or a laxative like Miralax daily for constipation. Wear the JONATHAN hose during the day and you may remove these at night. Place ice to the knee often. Place a towel between your skin and the blue pad. Schedule an appointment with your primary care provider for 'routine post-op care'. Call the Clinic with questions or concerns - [phone]. - Discharge Plan Prescriptions/Med Rec: Acetaminophen/oxyCODONE [Percocet 325-5 MG] 1 - 2 tab PO Q4H PRN #60 tablet PRN Reason: Pain Enoxaparin [Lovenox] 100 mg SUBCUT BID #5 syringe Home Medications: Home Meds Metoprolol Succinate [Toprol XL] 50 mg PO 1600 05/09/15 [History] Warfarin [Coumadin] 5 mg PO MOWEFR 05/09/15 [History] Warfarin [Coumadin] 7.5 mg PO SUTUTHSA 05/09/15 [History] Gabapentin 300 mg PO TID 08/07/16 [History] Potassium Chloride [Klor-Con 10] 10 meq PO DAILY 08/07/16 [History] guaiFENesin [Mucinex] 1,200 mg PO DAILY 08/07/16 [History] Anastrozole [Arimidex] 1 mg PO DAILY 08/10/16 [History] Calcium Carb & Citrate/Vit D3 [Calcium + D3 ER Tablet] 1 tab PO BID 08/10/16 [ History] Multivitamin [Daily Multiple Vitamin] 1 tab PO DAILY 08/10/16 [History] Acetaminophen/oxyCODONE [Percocet 325-5 MG] 1 - 2 tab PO Q4H PRN #60 tablet [Rx] Enoxaparin [Lovenox] 100 mg SUBCUT BID #5 syringe 08/12/16 [Rx] Patient Handouts: Total Knee Replacement, Care After, [id number], Total Knee Replacement, [id number], Knee Rehabilitation Guidelines Following Surgery Referrals: Tamela Gordon MD [Primary Care Provider] - Kimberly Beltran PA-C [Physician Civil Engineering Designer] - (Please see Kyung Beltran at 10:30 AM on Friday August 19, 2016 and also at 10:50 AM on Thursday August 25, 2016.) - Patient Data Vitals - Most Recent: Last Vital Signs Temp 99.3 F 08/12/16 08:00 Pulse 83 08/12/16 08:00 Resp 16 08/12/16 08:00 BP 138/58 L 08/12/16 08:00 Pulse Ox 92 L 08/12/16 08:00 Weight - Most Recent: 241 lb 1.6 oz I&O - Last 24 hours: Intake & Output 08/11/16 08/12/16 08/12/16 22:59 06:59 14:59 Intake Total 720 400 Output Total 500 1100 Balance 220 -700 Lab Results - Last 24 hrs: Laboratory Results - last 24 hr 08/12/16 08/12/16 08/12/16 Range/Units 08:30 08:30 08:30 WBC 7.05 (3.98-10.04) K/mm3 RBC 3.47 L (3.98-5.22) M/mm3 Hgb 10.8 L (11.2-15.7) gm/L Hct 33.6 L (34.1-44.9) % MCV 96.8 H (79.4-94.8) fl MCH 31.1 (25.6-32.2) pg MCHC 32.1 L (32.2-35.5) g/dl RDW Std Deviation 45.3 (36.4-46.3) fL Plt Count 165 L (182-369) K/mm3 MPV 8.4 L (9.4-12.3) fl Neut % (Auto) 72.6 H (34.0-71.1) % Lymph % (Auto) 10.4 L (19.3-51.7) % [place] % (Auto) 14.2 H (4.7-12.5) % Eos % (Auto) 2.6 (0.7-5.8) Baso % (Auto) 0.1 (0.1-1.2) % Neut # (Auto) 5.12 (1.56-6.13) K/mm3 Lymph # (Auto) 0.73 L (1.18-3.74) K/mm3 [place] # (Auto) 1.00 H (0.24-0.36) K/mm3 Eos # (Auto) 0.18 (0.04-0.36) K/mm3 Baso # (Auto) 0.01 (0.01-0.08) K/mm3 PT 10.7 (8.0-13.0) SECONDS INR 0.98 Sodium 137 (136-145) mEq/L Potassium 4.2 (3.5-5.1) mEq/L Chloride 103 (98-107) mEq/L Carbon Dioxide 28 (21-32) mEq/L Anion Gap 10.2 (5-15) BUN 10 (7-18) mg/dL Creatinine 0.8 (0.55-1.02) mg/dL Est Cr Clr Drug Dosing 51.92 mL/min Estimated GFR (MDRD) > 60 (>60) mL/min BUN/Creatinine Ratio 12.5 L (14-18) Glucose 116 H (83-115) mg/dL Calcium 8.6 (8.5-10.1) mg/dL Med Orders - Current: Current Medications Anastrozole (Arimidex) 1 mg PO DAILY [facility] Bisacodyl (Dulcolax) 5 mg PO DAILY PRN PRN Reason: Constipation Last Admin: 08/11/16 09:47 Dose: 5 mg Calcium Carbonate (Calcium Carbonate/Vitamin D 1500 Mg-200 Unit) 1 tab PO BID [facility] Last Admin: 08/12/16 08:33 Dose: 1 tab Diphenhydramine HCl (Benadryl) 12.5 mg IVPUSH Q6H PRN PRN Reason: pruritis Last Admin: 08/11/16 21:43 Dose: 12.5 mg Docusate Sodium (Colace) 100 mg PO BID [facility] Last Admin: 08/12/16 08:34 Dose: 100 mg Enoxaparin Sodium (Lovenox) 100 mg SUBCUT BID [facility] Last Admin: 08/12/16 08:34 Dose: 100 mg Famotidine (Pepcid) 20 mg PO Q12H [facility] Last Admin: 08/12/16 06:15 Dose: 20 mg Gabapentin (Neurontin) 300 mg PO TID [facility] Last Admin: 08/12/16 08:33 Dose: 300 mg Guaifenesin (Mucinex) 1,200 mg PO DAILY [facility] Last Admin: 08/12/16 08:32 Dose: 1,200 mg Hydralazine HCl (Apresoline) 20 mg IVPUSH Q4H PRN PRN Reason: Hypertension Magnesium Hydroxide (Milk Of Magnesia) 30 ml PO BID PRN PRN Reason: Constipation Magnesium Sulfate (Pharmacy To Dose - Magnesium Replacement) 1 dose .XX ASDIRECTED [facility] Metoprolol Succinate (Toprol Xl) 50 mg PO DAILY@1600 [facility] Metoprolol Tartrate (Lopressor) 5 mg IVPUSH Q4H PRN PRN Reason: Tachycardia Miscellaneous Information (Remove Patch) 0 ea TRDERM ONETIME ONE Stop: 08/14/16 09:31 Morphine Sulfate (Morphine) 2 mg IVPUSH Q2H PRN PRN Reason: Breakthrough Pain Last Admin: 08/11/16 17:31 Dose: 2 mg Multivitamins (Thera) 1 each PO DAILY [facility] Last Admin: 08/12/16 08:33 Dose: 1 each Ondansetron HCl (Zofran) 4 mg IVPUSH Q6H PRN PRN Reason: Nausea/Vomiting Last Admin: 08/11/16 17:25 Dose: 4 mg Oxycodone/Acetaminophen (Percocet 325-5 Mg) 1 - 2 tab PO Q4H PRN PRN Reason: Pain Last Admin: 08/12/16 08:29 Dose: 2 tab Potassium Chloride (Pharmacy To Dose - Potassium Replacement) 1 dose .XX ASDIRECTED [facility] Potassium Chloride (Klor-Con 10) 10 meq PO DAILY [facility] Last Admin: 08/12/16 08:34 Dose: 10 meq Senna (Senna) 8.6 mg PO BID PRN PRN Reason: Constipation Last Admin: 08/11/16 21:42 Dose: 8.6 mg Sodium Chloride (Saline Flush) 10 ml FLUSH ASDIRECTED PRN PRN Reason: Keep Vein Open Warfarin Sodium (Pharmacy To Dose - Warfarin) 1 dose .XX ASDIRECTED [facility] Warfarin Sodium (Coumadin) 5 mg PO MOWEFR [facility] Last Admin: 08/10/16 18:20 Dose: 5 mg Warfarin Sodium (Coumadin) 7.5 mg PO SUTUTHSA [facility] Last Admin: 08/11/16 17:46 Dose: 7.5 mg Discontinued Medications Bupivacaine HCl (Marcaine 0.25%) Confirm Administered Dose 30 ml .ROUTE .STK- MED ONE Stop: 08/10/16 07:25 Last Admin: 08/10/16 10:21 Dose: 30 ml Cefazolin Sodium (Ancef) Confirm Administered Dose 2 gm .ROUTE .STK-MED ONE Stop: 08/10/16 07:25 Cefazolin Sodium (Ancef) Confirm Administered Dose 2 gm .ROUTE .STK-MED ONE Stop: 08/10/16 09:24 Last Admin: 08/10/16 10:17 Dose: 2 gm Morphine Sulfate 8 mg/Epinephrine HCl 0.3 mg/Cefuroxime Sodium 750 mg/Ketorolac Tromethamine 30 mg/Sodium Chloride 27.9 ml 0 mg .XX ONETIME ONE Stop: 08/10/16 09:31 Last Admin: 08/10/16 10:20 Dose: 788.3 mg Diphtheria/Tetanus/Acell Pertussis (Boostrix) 0.5 ml IM .ONCE ONE Stop: 08/10/16 09:12 Ephedrine Sulfate (Ephedrine In Ns) Confirm Administered Dose 25 mg .ROUTE .STK- MED ONE Stop: 08/10/16 10:29 Hydromorphone HCl (Dilaudid) 0.5 mg IVPUSH Q15M PRN PRN Reason: severe pain Stop: 08/10/16 11:27 Lactated Ringer's (Ringers, Lactated) 1,000 mls @ 125 mls/hr IV ASDIRECTED [facility] Last Admin: 08/10/16 07:45 Dose: 125 mls/hr Cefazolin Sodium/Dextrose 2 gm (/ Premix) 50 mls @ 100 mls/hr IV Q8H [facility] Stop: 08/10/16 23:44 Last Admin: 08/10/16 13:34 Dose: Not Given Lidocaine HCl (Xylocaine-Mpf 1%) Confirm Administered Dose 4 mls @ as directed .ROUTE .STK-MED ONE Stop: 08/10/16 07:34 Cefazolin Sodium/Dextrose 2 gm (/ Premix) 50 mls @ 100 mls/hr IV Q8H [facility] Stop: 08/11/16 07:59 Last Admin: 08/11/16 06:38 Dose: 100 mls/hr Lactated Ringer's (Ringers, Lactated) Confirm Administered Dose 2,000 mls @ as directed .ROUTE .STK-MED ONE Stop: 08/10/16 14:52 Iodine (Iodine 2% Mild Tincture) Confirm Administered Dose 30 ml .ROUTE .STK- MED ONE Stop: 08/10/16 07:25 Last Admin: 08/10/16 10:15 Dose: 18 ml Lidocaine/Sodium Bicarbonate (Buffered Lidocaine 1% In Ns 8.4%) 0.25 ml IV ONETIME PRN PRN Reason: Prior to IV Start Stop: 08/10/16 18:00 Last Admin: 08/10/16 07:44 Dose: 0.25 ml Midazolam HCl (Versed 1 Mg/Ml) Confirm Administered Dose 2 mg .ROUTE .STK-MED ONE Stop: 08/10/16 07:49 Morphine Sulfate (Duramorph Pf) Confirm Administered Dose 10 mg .ROUTE .STK-MED ONE Stop: 08/10/16 07:34 Multivitamins (Thera) 1 each PO WITHBREAKFAST VANDANA Last Admin: 08/12/16 06:15 Dose: 1 each Naloxone HCl (Narcan) 0.1 mg IVPUSH Q5M PRN PRN Reason: Oversedation Stop: 08/10/16 07:26 Ondansetron HCl (Zofran) Confirm Administered Dose 4 mg .ROUTE .STK-MED ONE Stop: 08/10/16 09:24 Ondansetron HCl (Zofran) 4 mg IVPUSH ONETIME PRN PRN Reason: Nausea/Vomiting Propofol (Diprivan 20 Ml) Confirm Administered Dose 200 mg .ROUTE .STK-MED ONE Stop: 08/10/16 07:34 Propofol (Diprivan 20 Ml) Confirm Administered Dose 200 mg .ROUTE .STK-MED ONE Stop: 08/10/16 09:57 Scopolamine (Transderm-Scop) 1.5 mg TOP ONETIME ONE Stop: 08/11/16 09:31 Last Admin: 08/11/16 09:47 Dose: 1.5 mg Tranexamic Acid (Cyklokapron) Confirm Administered Dose 1,000 mg .ROUTE .STK- MED ONE Stop: 08/10/16 07:25 Last Admin: 08/10/16 10:25 Dose: 1,000 mg Warfarin Sodium (Pharmacy To Dose - Warfarin) 1 dose .XX ASDIRECTED [facility] *Q Meaningful Use (DIS) - VTE *Q VTE Criteria *Q: - Stroke *Q Stroke Criteria *Q: - AMI *Q AMI Criteria *Q:
[2016-08-12 11:42] VITALS: BP 131/85
[2016-08-12] MEDS ORDERED: Diphtheria,Pertussis(Acell),Tetanus Vaccine 0.5 ML SDV inactive IM ONE (13:15)
[2016-08-12] MEDS ORDERED: Metoprolol Succinate 50 MG Tab.ER PO SCH (16:00)
--- NOTE | 2016-08-17 10:00 | PCM.OPNOTE ---
- General Post-Op/Procedure Note Date of Surgery/Procedure: 08/10/16 Operative Procedure(s): right total knee arthroplasty Pre Op Diagnosis: right knee osteoarthrosis Post-Op Diagnosis: Same Anesthesia Technique: Spinal Primary Surgeon: Lucas Chapa Anesthesia Provider: Asia Peres Return To Service Inspector: Kimberly Bletran Return To Service Inspector: Diamante Brewer EBMckay in mLs: 300 Complications: None Condition: Good
--- NOTE | 2016-08-17 10:59 | OR ---
DATE OF OPERATION: 08/10/2016 SURGEON: Lucas Chapa MD OPERATION PERFORMED: Right total knee arthroplasty. PREOPERATIVE DIAGNOSIS: Right knee osteoarthrosis. POSTOPERATIVE DIAGNOSIS: Right knee osteoarthrosis. ANESTHESIA: Local MAC with spinal. ANESTHESIA PROVIDER: Asia Peres CRNA. AUTOMOTIVE UPHOLSTERER: Kimberly Beltran PA-C and Diamante Brewer LPN. ESTIMATED BLOOD LOSS: 300 mL COMPLICATIONS: None. CONDITION: Stable. IMPLANTS: [place] size 5 PS femur, [place] size 4 universal tibial base, [place] size 4, 9 mm PS X3 polyethylene, and Kathleen 29 x 9 mm asymmetric patella. DESCRIPTION OF PROCEDURE: The patient was identified in the preop holding area. Proper site was marked and identified by the surgeon. The patient was taken back to the operating theater. After adequate anesthesia, the patient's right lower extremity had a nonsterile tourniquet applied and it was then sterilely prepped and draped in the usual sterile fashion. OR timeout was performed. The patient received 2 g IV Ancef. At this time, right lower extremity was exsanguinated. Tourniquet was insufflated to 300 mmHg. Standard medial parapatellar incision was made. Medial parapatellar arthrotomy was created. Deep fibers of the MCL were raised and anterior fat pad was resected. At this time, attention was turned to the patella. Patella measured 23, it was resected to a 14 for a 29 x 9 mm patella. Drill holes were then drilled and found to be in adequate position. The drill was then drilled in the distal femur and the intramedullary distal femoral cutting guide was then placed. 8 mm was resected off the distal femur and was found to be an adequate resection. Sizing guide was placed. It was found to be a size 8 femur that was shown on the implant record at the beginning of this dictation. The drill holes were drilled for the epicondylar axis using Whitesides line and epicondyles as reference. At this time, the 4-in-1 cutting block was placed. An anterior posterior and anterior and posterior chamfer cuts were then completed. The correct size box cut was then placed and the box cut was completed and found to be an adequate resection. Attention was turned to the tibia. The posterior medial lateral retractors were placed. The extramedullary tibial guide was placed. It was placed in the old footprint of the ACL. It was aligned with the center of the ankle and 0 degrees of slope, 9 mm was then resected off the unaffected lateral side. There was found to be an acceptable reduction. At this time, posterior osteophytes were removed along with medial and lateral meniscus. A trial implant was placed with a correct sized tibia that was mentioned at the beginning of the dictation. A 9-mm trial spacer was trialled and 9-mm X3 PS polyethylene was then placed. The patient's knee was brought through range of motion. The patella was tracking centrally and was stable to varus and valgus stress. Alignment was found to be roughly at 0 degrees. At this time, cement was mixed on the back table. The tibia was stamped and drilled in proper rotation. All cut surfaces were irrigated with pulse lavage irrigation with Ancef and then completely dried. Once this was completed, then the cement was ready. The universal tibial base plate was cemented in place. Next, the [address] and the 9-mm X3 PS polyethylene was placed. The patient's knee was brought into full extension. Excess cement was removed. The patella was then cemented in place at this time. Tourniquet was deflated. One liter dilute Betadine solution was irrigated through the knee along with 3 L of pulse lavage irrigation with Ancef. Periarticular injection was then completed. The patient's knee was brought through a range of motion. Once the cement had time to set up and it was found to be stable to varus valgus stress, the patella was tracking centrally with full range of motion. At this time, a #2 barbed suture was used for closure of the medial parapatellar arthrotomy. Topical tranexamic acid was placed. 2-0 Vicryl was used subcutaneously, a running 3-0 Monocryl was used subcuticularly. The patient tolerated the procedure well and was sent to the PACU in stable condition. VIVIAN /[phone]
== END 2016-08-12 13:29 | disposition home or self-care (01) | DRG 470 ==
LOC: JD.MS 07:22
PROVIDERS: ADMIT Orthopaedic Surgery; ATTEND Orthopaedic Surgery
PROC: 0SRC0J9 Replacement of Right Knee Joint with Synthetic Substitute, Cemented, Open Approach (ICD-10-PCS; principal; 2016-08-10)
DX: M17.11 Unilateral primary osteoarthritis, right knee (principal); I48.0 Paroxysmal atrial fibrillation; Z79.01 Long term (current) use of anticoagulants; E78.00 Pure hypercholesterolemia, unspecified; I25.10 Atherosclerotic heart disease of native coronary artery without angina pectoris; I10 Essential (primary) hypertension; Z86.718 Personal history of other venous thrombosis and embolism; M35.3 Polymyalgia rheumatica; G25.81 Restless legs syndrome; E78.5 Hyperlipidemia, unspecified; E66.9 Obesity, unspecified; Z68.39 Body mass index [BMI] 39.0-39.9, adult; Z79.899 Other long term (current) drug therapy; Z88.1 Allergy status to other antibiotic agents; Z88.8 Allergy status to other drugs, medicaments and biological substances; Z91.09 Other allergy status, other than to drugs and biological substances; Z23 Encounter for immunization
CPT/HCPCS: 01402; 36415; 73560-26-RT; 73560-RT; 80048; 80053; 85025; 85610; 87641; 90471; 90715; 94762; 97110-GP; 97116-GP; 97161-GP; 97165-GO; 97530-GO; 97535-GO; A9270-GY; C1713; C1776; J0171; J0690; J0697; J1200; J1650; J1885; J2250; J2270; J2405; J2704; J3490; J7050; J7120

== ENCOUNTER 2016-08-22 09:20 | Emergency (ER) | payer MEDICARE, BC ==
[2016-08-22 09:43] VITALS: BP 197/95
[2016-08-22] MEDS ORDERED: HYDROmorphone 1 MG/ML Syringe IM ONE (10:23)
[2016-08-22] MEDS ORDERED: Cyclobenzaprine 10 MG Tab PO ONE (11:55)
--- NOTE | 2016-08-22 12:01 | EDM.PDOC ---
ED HPI GENERAL MEDICAL PROBLEM - General Chief Complaint: Lower Extremity Injury/Pain Stated Complaint: R KNEE PAIN/POST KNEE REPLACEMENT X 1 WK Time Seen by Provider: 08/22/16 09:50 Source of Information: Reports: Patient, Family (Daughter), RN Notes Reviewed History Limitations: Reports: No Limitations - History of Present Illness INITIAL COMMENTS - FREE TEXT/NARRATIVE: The patient states that she had a right total knee arthroplasty per Dr. Chapa on 08/10/2016. She was discharged home on 08/12/2016, on Coumadin. She has not yet started physical therapy, but is doing home exercises as instructed. She now presents with a complaint of increased pain to the entire right knee starting last night. She states that she took 2 Percocet at 02:30, then again at 07:00, but they have not relieved her pain. She denies any recent injury to the knee. She has not contacted Dr. Chapa. The patient's PCP is Dr. Tamela Gordon. Right Knee Pain Score (Numeric/FACES): 10 - Related Data Allergies Allergy/AdvReac Type Severity Reaction Status Date / Time adhesive Allergy Rash Verified 08/22/16 09:43 pravastatin [From Pravachol] Allergy Muscle Verified 08/22/16 09:43 Weakness atorvastatin calcium AdvReac Muscle Verified 08/22/16 09:43 [From Lipitor] Weakness rosuvastatin calcium AdvReac Muscle Verified 08/22/16 09:43 [From Crestor] Weakness simvastatin [From Zocor] AdvReac Muscle Verified 08/22/16 09:43 Weakness [id number]-Dvn Reductase AdvReac Muscle Verified 08/22/16 09:43 Inhibitor Weakness Home Meds: Home Meds Metoprolol Succinate [Toprol XL] 50 mg PO 1600 05/09/15 [History] Warfarin [Coumadin] 5 mg PO MOWEFR 05/09/15 [History] Warfarin [Coumadin] 7.5 mg PO SUTUTHSA 05/09/15 [History] Gabapentin 300 mg PO TID 08/07/16 [History] Potassium Chloride [Klor-Con 10] 10 meq PO DAILY 08/07/16 [History] guaiFENesin [Mucinex] 1,200 mg PO DAILY 08/07/16 [History] Anastrozole [Arimidex] 1 mg PO DAILY 08/10/16 [History] Calcium Carb & Citrate/Vit D3 [Calcium + D3 ER Tablet] 1 tab PO BID 08/10/16 [ History] Multivitamin [Daily Multiple Vitamin] 1 tab PO DAILY 08/10/16 [History] Acetaminophen/oxyCODONE [Percocet 325-5 MG] 1 - 2 tab PO Q4H PRN #60 tablet [Rx] Enoxaparin [Lovenox] 100 mg SUBCUT BID #5 syringe 08/12/16 [Rx] Cyclobenzaprine [Flexeril] 5 mg PO Q8H #30 tablet 08/22/16 [Rx] Past Medical History HEENT History: Reports: Retinal Detachment, Other (See Below) Other HEENT History: dentures, hearing aids, glasses Cardiovascular History: Reports: Afib (paroxysmal), Blood Clots/VTE/DVT (LLE), High Cholesterol, Hypertension Musculoskeletal History: Reports: Osteoarthritis, Other (See Below) ( Polymyalgia rheumatica) Oncologic (Cancer) History: Reports: Breast (right) - Past Surgical History HEENT Surgical History: Reports: Cataract Surgery (right), Tonsillectomy GI Surgical History: Reports: Colonoscopy Female Surgical History: Reports: Hysterectomy, Mastectomy (right) Other Neurological Surgeries/Procedures: spine surgery Musculoskeletal Surgical History: Reports: Hip Replacement (bilateral), Knee Replacement (right), Other (See Below) (Left radial head replacement) Social & Family History - Family History Family Medical History: Noncontributory - Tobacco Use Smoking Status *Q: Never Smoker Second Hand Smoke Exposure: No - Caffeine Use Caffeine Use: Reports: Coffee - Alcohol Use Alcohol Use History: No - Recreational Drug Use Recreational Drug Use: No - Living Situation & Occupation Living situation: Reports: , with Spouse, Other (Guests) Occupation: Retired Review of Systems - Review of Systems Review Of Systems: See Below Constitutional: Reports: No Symptoms Eyes: Reports: No Symptoms Ears: Reports: No Symptoms Nose: Reports: No Symptoms Mouth/Throat: Reports: No Symptoms Respiratory: Reports: No Symptoms Cardiovascular: Reports: No Symptoms GI/Abdominal: Reports: No Symptoms Genitourinary: Reports: No Symptoms Musculoskeletal: Reports: No Symptoms Skin: Reports: No Symptoms Neurological: Reports: No Symptoms Psychiatric: Reports: No Symptoms ED EXAM, GENERAL - Physical Exam Exam: See Below Exam Limited By: No Limitations General Appearance: Alert, WD/WN, No Apparent Distress Extremities: Other (Bandage was removed from the anterior aspect of the right knee. There is a healing surgical wound with no suppuration. There is ecchymosis about the anterior aspect of the knee, extending to the proximal leg , with associated swelling that also extends down the right leg. Appropriate tenderness to palpation of the right knee. Limited ROM due to pain.) Neurological: Alert, Oriented, Normal Cognition, No Motor/Sensory Deficits Course - Vital Signs Last Recorded V/S: Last Vital Signs Temp 36.8 C 08/22/16 09:36 Pulse 90 08/22/16 09:36 Resp 18 08/22/16 09:36 BP 197/95 H 08/22/16 09:36 Pulse Ox 93 L 08/22/16 09:36 - Orders/Labs/Meds Labs: Laboratory Tests 08/22/16 08/22/16 08/22/16 Range/Units 10:38 10:38 10:38 ESR 90 H (0-20) mm/hr PT 34.2 H (8.0-13.0) SECONDS INR 2.93 APTT 48 H (22-36) SECONDS C-Reactive Protein 4.4 H* (<1.0) mg/dL Meds: Medications Discontinued Medications Generic Name Dose Route Start Last Admin Trade Name Freq PRN Reason Stop Dose Admin Cyclobenzaprine HCl 10 mg 08/22/16 11:55 08/22/16 12:04 Flexeril PO 08/22/16 11:56 10 mg ONETIME ONE Administration Hydromorphone HCl 1 mg 08/22/16 10:23 08/22/16 10:28 Dilaudid IM 08/22/16 10:24 1 mg ONETIME ONE Administration - Re-Assessments/Exams Free Text/Narrative Re-Assessment/Exam: 08/22/16 10:[address] Chapa at 10:19. He would like me to check an ESR, CRP, and coags. If the patient was not previously prescribed Flexeril, he would like me to start the patient on Flexeril 5 mg Q8 hrs. He would like to see the patient in follow-up this coming week. 08/22/16 11:55 Test results discussed with the patient and her daughters. Today's workup is unremarkable. Her INR is therapeutic at 2.93. As per Dr. Chapa's recommendation, we will start the patient on Flexeril, and I will e-prescribe the same. The patient is to continue taking her previously prescribed Percocet, and to continue to exercise her right knee and she is to follow-up with Dr. Chapa this coming week. Departure - Departure Time of Disposition: 11:59 Disposition: Home, Self-Care 01 Condition: Fair Clinical Impression: Acute postoperative pain of right knee - Discharge Information Prescriptions: Cyclobenzaprine [Flexeril] 5 mg PO Q8H #30 tablet Referrals: Tamela Gordon MD [Primary Care Provider] - Lucas Chapa MD [Physician] - Forms: ED Department Discharge Additional Instructions: You were seen in the emergency room for postoperative right knee pain. Workup in the ER included a CRP, ESR, and coagulation studies. Your INR (coumadin number) is therapeutic at 2.93. Your case was discussed with Dr. Chapa. He is recommending that we start you on the muscle relaxant Flexeril. Take one tablet every 8 hours, as prescribed. Dr. Chapa would like you to follow-up with him this coming week. In the meantime, continue to take your previously prescribed Percocet every 4-6 hours, as needed for pain. Continue to exercise your right knee. If any other problems, please do not hesitate to return to the ER.
== END 2016-08-22 12:55 | disposition home or self-care (01) ==
LOC: JD.ED 09:20
DX: G89.18 Other acute postprocedural pain (principal); M25.561 Pain in right knee; Z79.01 Long term (current) use of anticoagulants; Z88.8 Allergy status to other drugs, medicaments and biological substances; I48.91 Unspecified atrial fibrillation; E78.00 Pure hypercholesterolemia, unspecified; I10 Essential (primary) hypertension; M19.90 Unspecified osteoarthritis, unspecified site; Z98.49 Cataract extraction status, unspecified eye; Z98.890 Other specified postprocedural states; Z90.710 Acquired absence of both cervix and uterus; Z96.643 Presence of artificial hip joint, bilateral; Z79.899 Other long term (current) drug therapy; Z91.09 Other allergy status, other than to drugs and biological substances
CPT/HCPCS: 36415; 85610; 85652; 85730; 86140; 96372; 99283; A9270; J1170

== ENCOUNTER 2017-11-20 16:51 | Emergency (ER) | payer MEDICARE, BC ==
[2017-11-20] MEDS ORDERED: Acetaminophen/HYDROcodone 325-5 MG Tab PO ONE (17:17)
--- NOTE | 2017-11-20 18:32 | CT ---
CT chest Technique: Multiple axial sections were obtained from above the lung apices inferiorly through the lung bases. Intravenous contrast was not utilized. Findings: Mitral annulus calcification is seen. Coronary artery calcification is noted. Small mediastinal lymph nodes are seen which are within normal limits. No axillary adenopathy is seen. Atherosclerotic calcification is noted within a nondilated thoracic aorta. Single partially calcified gallstone is seen within the gallbladder. Diverticuli are seen within the visualized colon. Small hiatal hernia is seen. Lungs show no acute parenchymal change. No pulmonary contusion is seen. Small nodule which appears noncalcified is seen within the right middle lobe measuring approximately 8 mm. No additional nodule is seen. Bone window settings were reviewed which shows no discrete rib fracture. Reconstructed sagittal views of the sternum appear intact. Degenerative change is noted within both shoulders. Impression: 1. 8 mm nodule within the right middle lobe. Follow-up noncontrast chest CT is recommended in 8 months to hopefully confirm stability. This follow-up would occur in Jun, 2017. 2. Other incidental findings. Nothing acute is seen on noncontrast CT study of the chest. Diagnostic code #9
--- NOTE | 2017-11-20 18:32 | EDM.PDOC ---
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 She did not hit her head or hurt her back. She has no abdominal pain. She has some right lateral and right upper back pain. She says it hurts to take a deep breath. She has no pain in her hips or wrists. Onset: Sudden Duration: Minutes: Location: Reports: Chest (Right lateral to right back), Back (Right upper) Quality: Reports: Sharp Severity: Moderate Improves with: Reports: Immobilization Worsens with: Reports: Breathing, Movement Context: Reports: Trauma (She tripped and fell on the recreation facility manager door) Associated Symptoms: Reports: Chest Pain, Shortness of Breath. Denies: Fever/ Chills, Headaches, Nausea/Vomiting Right Posterior Back Pain Score (Numeric/FACES): 10 - Related Data Allergies Allergy/AdvReac Type Severity Reaction Status Date / Time adhesive Allergy Rash Verified 08/22/16 09:43 dicloxacillin Allergy Rash Verified 11/20/17 17:44 pravastatin [From Pravachol] Allergy Muscle Verified 08/22/16 09:43 Weakness atorvastatin calcium AdvReac Muscle Verified 08/22/16 09:43 [From Lipitor] Weakness rosuvastatin calcium AdvReac Muscle Verified 08/22/16 09:43 [From Crestor] Weakness simvastatin [From Zocor] AdvReac Muscle Verified 08/22/16 09:43 Weakness Nmmkwwn-Hvt-Uqe Reductase AdvReac Muscle Verified 08/22/16 09:43 Inhibitor Weakness Home Meds: Home Meds Metoprolol Succinate [Toprol XL] 75 mg PO 1600 05/09/15 [History] Warfarin [Coumadin] 5 mg PO MOWEFR 05/09/15 [History] Warfarin [Coumadin] 7.5 mg PO SUTUTHSA 05/09/15 [History] Gabapentin 300 mg PO BEDTIME 08/07/16 [History] Potassium Chloride [Klor-Con 10] 10 meq PO DAILY 08/07/16 [History] guaiFENesin [Mucinex] 1,200 mg PO DAILY 08/07/16 [History] Anastrozole [Arimidex] 1 mg PO DAILY 08/10/16 [History] Calcium Carb & Citrate/Vit D3 [Calcium + D3 ER Tablet] 1 tab PO BID 08/10/16 [ History] Multivitamin [Daily Multiple Vitamin] 1 tab PO DAILY 08/10/16 [History] Acetaminophen/oxyCODONE [Percocet 325-5 MG] 1 - 2 tab PO Q4H PRN #60 tablet [Rx] Enoxaparin [Lovenox] 100 mg SUBCUT BID #5 syringe 08/12/16 [Rx] Cyclobenzaprine [Flexeril] 5 mg PO Q8H #30 tablet 08/22/16 [Rx] Albuterol [Proventil HFA] 2 puff INH Q4H PRN 11/20/17 [History] Calcium Citrate/Vitamin D3 [Calcium Citrate - Vit D Caplet] 1 tab PO BID [History] Fluticasone/Vilanterol [Breo Ellipta 100-25 MCG Inhalation Kit] 1 puff INH DAILY 11/20/17 [History] Hydrocodone/Acetaminophen [Hydrocodon-Acetaminophen 5-325] 1 - 2 each PO Q6HR PRN #20 tablet 11/20/17 [Rx] Past Medical History HEENT History: Reports: Retinal Detachment, Other (See Below) Other HEENT History: dentures, hearing aids, glasses Cardiovascular History: Reports: Afib, Blood Clots/VTE/DVT, High Cholesterol, Hypertension Other Cardiovascular History: DVT L lower leg, arteriosclerotic vascular disease , varicose veins Respiratory History: Reports: None 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: 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: Other (See Below) Other 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 SUPERVISOR History: Vaginal hysterectomy Musculoskeletal History: Reports: Osteoarthritis, Other (See Below) Other Musculoskeletal History: polymyalgia rheumatica, restless leg syndrome, back pain, L shoudler subacromial impingement, osteoarthritis to R knee Neurological History: Reports: Other (See Below) Psychiatric History: Reports: None Endocrine/Metabolic History: Reports: None Hematologic History: Reports: Other (See Below) Other Hematologic History: is on blood thinners Immunologic History: Reports: Other (See Below) Other Immunologic History: Polymyalgia rheumatic Oncologic (Cancer) History: Reports: Breast Dermatologic History: Reports: Other (See Below) Other Dermatologic History: varicose veins, cyst excision, contact dermatitis, thrombophlebitis - Past Surgical History HEENT Surgical History: Reports: Cataract Surgery, Tonsillectomy GI Surgical History: Reports: Colonoscopy Female Surgical History: Reports: Hysterectomy, Mastectomy Other Neurological Surgeries/Procedures: spine surgery Musculoskeletal Surgical History: Reports: Hip Replacement, Knee Replacement, Other (See Below) Social & Family History - Family History Family Medical History: Noncontributory - Tobacco Use Smoking Status *Q: Never Smoker - Caffeine Use Caffeine Use: Reports: Coffee, Soda - Recreational Drug Use Recreational Drug Use: No - Living Situation & Occupation Living situation: Reports: , with Spouse, Other (Guests) Occupation: Retired ED ROS GENERAL - Review of Systems Review Of Systems: See Below Constitutional: Reports: No Symptoms HEENT: Reports: No Symptoms Respiratory: Reports: Shortness of Breath Cardiovascular: Reports: Chest Pain Endocrine: Reports: No Symptoms GI/Abdominal: Reports: No Symptoms : Reports: No Symptoms Musculoskeletal: Reports: Back Pain (Right upper back) ED EXAM, UPPER BACK/NECK PAIN - Physical Exam Exam: See Below Exam Limited By: No Limitations General Appearance: Alert, No Apparent Distress Ears Exam: Normal External Exam Nose Exam: Normal Inspection Head Exam: Atraumatic, Normocephalic Neck Exam: Non-Tender, Normal Alignment, Normal Inspection Cardiovascular/Respiratory: Regular Rate, Rhythm, No M/R/G, Normal Peripheral Pulses, Normal Breath Sounds, No Respiratory Distress, Other (Pain upon palpation to the right lateral chest) GI/Abdominal: Soft, Non-Tender, No Organomegaly, No Mass Back Exam: Other (Pain upon palpation to the right upper back into her right thoracic spine) Extremities: Normal Inspection, Non-Tender Neurologic: No Motor/Sensory Deficits, Alert, Oriented x 3 Course - Vital Signs Last Recorded V/S: Last Vital Signs Temp 98.1 F 11/20/17 17:03 Pulse 66 11/20/17 17:03 Resp 24 H 11/20/17 17:03 BP 152/84 H 11/20/17 17:03 Pulse Ox 97 11/20/17 17:03 - Orders/Labs/Meds Meds: Medications Discontinued Medications Generic Name Dose Route Start Last Admin Trade Name Freq PRN Reason Stop Dose Admin Hydrocodone Bitart/Acetaminophen 2 tab 11/20/17 17:17 11/20/17 17:28 [place] 325-5 Mg PO 11/20/17 17:18 2 tab ONETIME ONE Administration - Re-Assessments/Exams Free Text/Narrative Re-Assessment/Exam: 11/20/17 18:32 I ordered 2 hydrocodone/APAP 5mg/325, CT of her chest and thoracic spine. 11/20/17 18:[address] of her chest shows an 8mm nodule within the right middle lobe. Follow- up noncontrast chest CT is recommended in 8 months to hopefully confirm stability. This follow-up would occur June 2017. Other incidental findings. Nothing acute is seen on noncontrast CT study of the chest. The CT of her thoracic spine shows degenerative change. Nothing acute is seen on CT study of the thoracic spine. She feels better. I will get her an incentive spirometer. Departure - Departure Time of Disposition: 18:50 Disposition: Home, Self-Care 01 Condition: Good Clinical Impression: Fall Qualifiers: Encounter type: initial encounter Qualified Code(s): W19.XXXA - Unspecified fall, initial encounter Back pain Qualifiers: Back pain location: thoracic back pain Chronicity: acute Back pain laterality: right Qualified Code(s): M54.6 - Pain in thoracic spine - Discharge Information *PRESCRIPTION DRUG MONITORING PROGRAM REVIEWED*: No *COPY OF PRESCRIPTION DRUG MONITORING REPORT IN PATIENT MELANIE: No Prescriptions: Hydrocodone/Acetaminophen [Hydrocodon-Acetaminophen 5-325] 1 - 2 each PO Q6HR PRN #20 tablet PRN Reason: Pain Referrals: Tamela Gordon MD [Primary Care Provider] - 1 Week Forms: ED Department Discharge Additional Instructions: Use the incentive spirometer 10 breaths every other hour while awake for 5 days. Take the hydrocodone as needed for pain. Please return if you are worse.
--- NOTE | 2017-11-20 18:36 | CT ---
CT thoracic spine Technique: Multiple axial sections through the thoracic spine were obtained. Reconstructed sagittal and coronal images were reviewed. Findings: Vertebral body heights are maintained. Mild disc space narrowing is noted within the mid and lower thoracic spine. Endplate osteophytes are seen most prominent within the mid and lower thoracic spine. No fracture is seen. No abnormal subluxation is identified. Impression: 1. Degenerative change. 2. Nothing acute is seen on CT study of the thoracic spine. Diagnostic code #2
[2017-11-20 19:15] VITALS: BP 162/84
== END 2017-11-20 19:00 | disposition home or self-care (01) ==
LOC: JD.ED 16:51
DX: M54.6 Pain in thoracic spine (principal); I10 Essential (primary) hypertension; Z91.09 Other allergy status, other than to drugs and biological substances; Z88.8 Allergy status to other drugs, medicaments and biological substances; Z79.01 Long term (current) use of anticoagulants; Z79.899 Other long term (current) drug therapy; W18.09XA Striking against other object with subsequent fall, initial encounter
CPT/HCPCS: 71250; 72128; 99285; A9270

== ENCOUNTER 2017-11-23 16:26 | Emergency (ER) | payer MEDICARE, BC ==
--- NOTE | 2017-11-23 17:34 | EDM.PDOC ---
<Chloé Meza - Last Filed: 11/23/17 18:12> ED HPI GENERAL MEDICAL PROBLEM - General Chief Complaint: Back Pain or Injury Stated Complaint: BACK PAIN Time Seen by Provider: 11/23/17 16:39 - History of Present Illness INITIAL COMMENTS - FREE TEXT/NARRATIVE: Adele is a 77-year-old woman with history of asthma, pulmonary HTN, essential HTN, A-fib, DVT, and breast cancer (s/p chemo and radiation) who complains of right mid-back pain after a fall on Wednesday. She presents to the ED with her daughter, who helps provide history. 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 She went to the ED for evaluation after her fall. CT scans of her chest and T-spine were performed, which did not show any fractures of her back or ribs. Adele was prescribed hydrocodone 5/325, which alleviated her pain until today. She reports she has been taking two 5/325 hydrocodone pills every two hours, and her pain has worsened today. She is unable to take NSAIDS due to use of coumadin for chronic A-fib. Pain is localized to her right mid-back and is aggravated by movement. There are no alleviating factors. There is no radiation of pain. Pt has chronic shortness of breath and is concerned that she may have developed pneumonia since her fall. She was given an incentive spirometer at her recent ED visit, and has been using it. She denies cough or chest pain. No fever, chills, or diaphoresis. Right Middle Back Pain Score (Numeric/FACES): 10 - Related Data Allergies Allergy/AdvReac Type Severity Reaction Status Date / Time adhesive Allergy Rash Verified 08/22/16 09:43 dicloxacillin Allergy Rash Verified 11/20/17 17:44 pravastatin [From Pravachol] Allergy Muscle Verified 08/22/16 09:43 Weakness atorvastatin calcium AdvReac Muscle Verified 08/22/16 09:43 [From Lipitor] Weakness rosuvastatin calcium AdvReac Muscle Verified 08/22/16 09:43 [From Crestor] Weakness simvastatin [From Zocor] AdvReac Muscle Verified 08/22/16 09:43 Weakness Ubrgcps-Gkd-Dpw Reductase AdvReac Muscle Verified 08/22/16 09:43 Inhibitor Weakness Home Meds: Home Meds Metoprolol Succinate [Toprol XL] 75 mg PO 1600 05/09/15 [History] Warfarin [Coumadin] 5 mg PO MOWEFR 05/09/15 [History] Warfarin [Coumadin] 7.5 mg PO SUTUTHSA 05/09/15 [History] Gabapentin 300 mg PO BEDTIME 08/07/16 [History] Potassium Chloride [Klor-Con 10] 10 meq PO DAILY 08/07/16 [History] guaiFENesin [Mucinex] 1,200 mg PO DAILY 08/07/16 [History] Anastrozole [Arimidex] 1 mg PO DAILY 08/10/16 [History] Calcium Carb & Citrate/Vit D3 [Calcium + D3 ER Tablet] 1 tab PO BID 08/10/16 [ History] Multivitamin [Daily Multiple Vitamin] 1 tab PO DAILY 08/10/16 [History] Acetaminophen/oxyCODONE [Percocet 325-5 MG] 1 - 2 tab PO Q4H PRN #60 tablet [Rx] Enoxaparin [Lovenox] 100 mg SUBCUT BID #5 syringe 08/12/16 [Rx] Cyclobenzaprine [Flexeril] 5 mg PO Q8H #30 tablet 08/22/16 [Rx] Albuterol [Proventil HFA] 2 puff INH Q4H PRN 11/20/17 [History] Calcium Citrate/Vitamin D3 [Calcium Citrate - Vit D Caplet] 1 tab PO BID [History] Fluticasone/Vilanterol [Breo Ellipta 100-25 MCG Inhalation Kit] 1 puff INH DAILY 11/20/17 [History] Hydrocodone/Acetaminophen [Hydrocodon-Acetaminophen 5-325] 1 - 2 each PO Q6HR PRN #20 tablet 11/20/17 [Rx] Cyclobenzaprine [Flexeril] 5 mg PO Q8HR PRN #20 tab 11/23/17 [Rx] Cyclobenzaprine [Flexeril] 5 mg PO TID #20 tab 11/23/17 [Rx] oxyCODONE HCl/Acetaminophen [Percocet 5-325 mg Tablet] 1 each PO Q6HR PRN #20 tablet 11/23/17 [Rx] Past Medical History HEENT History: Reports: Retinal Detachment, Other (See Below) Other HEENT History: dentures, hearing aids, glasses Cardiovascular History: Reports: Afib, Blood Clots/VTE/DVT, High Cholesterol, Hypertension Other Cardiovascular History: DVT L lower leg, arteriosclerotic vascular disease , varicose veins Respiratory History: Reports: None 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: Other (See Below) Other SCRAP BALLER History: Vaginal hysterectomy Musculoskeletal History: Reports: Osteoarthritis, Other (See Below) Other Musculoskeletal History: polymyalgia rheumatica, restless leg syndrome, back pain, L shoudler subacromial impingement, osteoarthritis to R knee Neurological History: Reports: Other (See Below) Psychiatric History: Reports: None Endocrine/Metabolic History: Reports: None Hematologic History: Reports: Other (See Below) Other Hematologic History: is on blood thinners Immunologic History: Reports: Other (See Below) Other Immunologic History: Polymyalgia rheumatic Oncologic (Cancer) History: Reports: Breast Dermatologic History: Reports: Other (See Below) Other Dermatologic History: varicose veins, cyst excision, contact dermatitis, thrombophlebitis - Past Surgical History HEENT Surgical History: Reports: Cataract Surgery, Tonsillectomy GI Surgical History: Reports: Colonoscopy Female Surgical History: Reports: Hysterectomy, Mastectomy Other Neurological Surgeries/Procedures: spine surgery Musculoskeletal Surgical History: Reports: Hip Replacement, Knee Replacement, Other (See Below) Social & Family History - Family History Family Medical History: Noncontributory - Tobacco Use Smoking Status *Q: Never Smoker - Caffeine Use Caffeine Use: Reports: Coffee - Recreational Drug Use Recreational Drug Use: No - Living Situation & Occupation Living situation: Reports: , with Spouse, Other (Guests) Occupation: Retired ED ROS GENERAL - Review of Systems Constitutional: Denies: Fever, Chills, Diaphoresis Respiratory: Reports: Shortness of Breath (chronic shortness of breath x two years). Denies: Pleuritic Chest Pain, Cough, Sputum Cardiovascular: Denies: Chest Pain, Lightheadedness, Palpitations GI/Abdominal: Denies: Abdominal Pain, Constipation : Reports: No Symptoms, Incontinence (occasional incontinence; chronic problem ) Musculoskeletal: Denies: Neck Pain, Shoulder Pain, Leg Pain, Joint Swelling, Muscle Stiffness Neurological: Reports: No Symptoms. Denies: Numbness, Syncope, Tingling, Difficulty Walking, Weakness ED EXAM, UPPER BACK/NECK PAIN - Physical Exam Exam Limited By: No Limitations General Appearance: Alert, Moderate Distress, Obese Head Exam: Atraumatic Neck Exam: Non-Tender, Full Range of Motion. No: Paraspinous Muscle Tender, Tenderness Cardiovascular/Respiratory: Normal Peripheral Pulses, Normal Breath Sounds, Irregularly Irregular GI/Abdominal: Soft, Non-Tender Back Exam: Decreased Range of Motion (ROM limited by pain), Muscle Spasm (right mid-back paraspinal spasm/tenderness), Paraspinal Tenderness (right mid-back). No: Vertebral Tenderness (no midline tenderness) Extremities: Normal Inspection Neurologic: Normal Mood/Affect, Oriented x 3 Psychiatric: Anxious Skin Exam: Ecchymosis (ecchymosis over right mid-back, at same location of tenderness/muscle spasm) Course - Vital Signs Last Recorded V/S: Last Vital Signs Temp 97.7 F 11/23/17 16:58 Pulse 76 11/23/17 17:58 Resp 18 11/23/17 17:58 BP 154/89 H 11/23/17 17:58 Pulse Ox 94 L 11/23/17 17:58 - Orders/Labs/Meds Labs: Laboratory Tests 11/23/17 Range/Units 17:05 Urine Color Yellow (Yellow) Urine Appearance Clear (Clear) Urine pH 6.0 (5.0-8.0) Ur Specific [place] > or = 1.030 (1.005-1.030) Urine Protein 1+ H (Negative) Urine Glucose (UA) Negative (Negative) Urine Ketones Negative (Negative) Urine Occult Blood Negative (Negative) Urine Nitrite Negative (Negative) Urine Bilirubin Negative (Negative) Urine Urobilinogen 1.0 (0.2-1.0) Ur Leukocyte Esterase Trace H (Negative) Urine RBC Not seen (0-5) /hpf Urine WBC 0-5 (0-5) /hpf Ur Epithelial Cells 0-5 (0-5) /hpf Urine Bacteria Not seen (FEW) /hpf Urine Mucus Not seen (FEW) /hpf Meds: Medications Discontinued Medications Generic Name Dose Route Start Last Admin Trade Name Freq PRN Reason Stop Dose Admin Oxycodone/Acetaminophen 1 tab 11/23/17 17:48 11/23/17 17:58 Percocet 325-5 Mg PO 11/23/17 17:49 1 tab ONETIME ONE Administration Departure - Departure Disposition: Home, Self-Care 01 Clinical Impression: Contusion of back Qualifiers: Encounter type: initial encounter Laterality: right Qualified Code(s): S20.221A - Contusion of right back wall of thorax, initial encounter Strain of back Qualifiers: Encounter type: initial encounter Qualified Code(s): S39.012A - Strain of muscle, fascia and tendon of lower back, initial encounter - Discharge Information Prescriptions: oxyCODONE HCl/Acetaminophen [Percocet 5-325 mg Tablet] 1 each PO Q6HR PRN #20 tablet PRN Reason: Pain Cyclobenzaprine [Flexeril] 5 mg PO Q8HR PRN #20 tab PRN Reason: Spasms Cyclobenzaprine [Flexeril] 5 mg PO TID #20 tab Instructions: Contusion, [id number], Low Back Strain Referrals: Tamela Gordon MD [Primary Care Provider] - Forms: ED Department Discharge Additional Instructions: rest back, no heavy lifting, alternate ice and heat as needed, percocet q 6 to 8 hr as needed for severe back pain, flexeril 5 mg three times daily as needed for back pain and spasm and also for muscle relaxation. Physical Therapy until pain resolving. Follow up with your regular medical provider in about 10 days for recheck, call for appt. <Lui Henriquez - Last Filed: 11/23/17 22:04> ED HPI GENERAL MEDICAL PROBLEM - General Source of Information: Reports: Patient, RN Notes Reviewed ED ROS GENERAL - Review of Systems Review Of Systems: See Below GI/Abdominal: Denies: Nausea, Vomiting Skin: Reports: Bruising (mild R mid back) ED EXAM, UPPER BACK/NECK PAIN - Physical Exam Exam: See Below Throat/Mouth Exam: Normal Inspection Head Exam: No: Scalp Tenderness, Facial Swelling Extremities: No: Leg Pain Skin Exam: Normal Color, Warm/Dry Course - Re-Assessments/Exams Free Text/Narrative Re-Assessment/Exam: 11/23/17 22:[address] of chest and spine done 3 days ago here in the ED right after her fall. Initial hx and exam was done by Chloé Marks, 4th year medical student. I agree with her hx and exam. I have also examined patient. We have given 1 percocet PO, the hydrocodone prescribed is not giving her what she believes is adequate pain relief. discharge instr. as documeneted. Departure - Departure Time of Disposition: 17:59 Condition: Fair
[2017-11-23] MEDS ORDERED: Acetaminophen/oxyCODONE 325-5 MG Tab PO ONE (17:48)
[2017-11-23 17:58] VITALS: BP 154/89
== END 2017-11-23 18:23 | disposition home or self-care (01) ==
LOC: JD.ED 16:26
DX: S29.012A Strain of muscle and tendon of back wall of thorax, initial encounter (principal); I10 Essential (primary) hypertension; Z91.09 Other allergy status, other than to drugs and biological substances; Z88.8 Allergy status to other drugs, medicaments and biological substances; Z79.01 Long term (current) use of anticoagulants; W18.09XA Striking against other object with subsequent fall, initial encounter
CPT/HCPCS: 81001; 99283; A9270; 99284

== ENCOUNTER 2021-09-17 10:44 | Emergency (ER) | payer MEDICARE, BC ==
[2021-09-17 10:56] VITALS: BP 130/84; PULSE 78
[2021-09-17] MEDS ORDERED: HYDROmorphone 0.5 MG/0.5 ML Syringe IM ONE (11:10)
== END 2021-09-17 12:44 | disposition home or self-care (01) ==
LOC: JD.ED 10:44
DX: G89.29 Other chronic pain (principal); M54.41 Lumbago with sciatica, right side; I10 Essential (primary) hypertension; Z91.048 Other nonmedicinal substance allergy status; Z88.1 Allergy status to other antibiotic agents; Z88.8 Allergy status to other drugs, medicaments and biological substances; Z88.6 Allergy status to analgesic agent; Z79.899 Other long term (current) drug therapy; Z79.01 Long term (current) use of anticoagulants; Z90.710 Acquired absence of both cervix and uterus
CPT/HCPCS: 96374; 99283; J1170

== ENCOUNTER 2022-07-08 08:59 | Emergency (ER) | payer MEDICARE, BC ==
[2022-07-08 09:15] VITALS: PULSE 73
[2022-07-08] MEDS ORDERED: Sodium Chloride 0.9% 10 ML Syringe FLUSH PRN (10:40)
[2022-07-08 11:50] VITALS: BP 135/84
[2022-07-08 11:52] LABS: BASOPHILS ABSOLUTE AUTO 0.01 K/mm3 (0.01-0.08); BASOPHILS PERCENT AUTO 0.2 % (0.1-1.2); EOSINOPHILS ABSOLUTE AUTO 0.17 K/mm3 (0.04-0.36); EOSINOPHILS PERCENT AUTO 3.1 (0.7-5.8); HEMATOCRIT 39.5 % (34.1-44.9); HEMOGLOBIN 12.1 gm/dl (11.2-15.7); IMMATURE GRAN ABSOLUTE AUTO 0.01 K/mm3 (0.00-0.10); IMMATURE GRAN PERCENT AUTO 0.2 % (<=1.0); LYMPHOCYTES ABSOLUTE AUTO 1.08 K/mm3 (1.18-3.74); LYMPHOCYTES PERCENT AUTO 19.9 % (19.3-51.7); MEAN CORPUSCULAR HEMOGLOBIN 29.6 pg (25.6-32.2); MEAN CORPUSCULAR HGB CONC 30.6 g/dl (32.2-35.5); MEAN CORPUSCULAR VOLUME 96.6 fl (79.4-94.8); MEAN PLATELET VOLUME 9.5 fl (9.4-12.3); MONOCYTES ABSOLUTE AUTO 0.77 K/mm3 (0.24-0.36); MONOCYTES PERCENT AUTO 14.2 % (4.7-12.5); NEUTROPHILS PERCENT AUTO 62.4 % (34.0-71.1); PLATELET COUNT,PLT 200 K/mm3 (182-369); RED BLOOD CELL COUNT 4.09 M/mm3 (3.98-5.22); WHITE BLOOD CELL COUNT,WBC 5.44 K/mm3 (3.98-10.04)
[2022-07-08] MEDS ORDERED: cefTRIAXone 1 GM in Sodium Chloride 0.9% 100 ML IV ONE (12:01)
[2022-07-08] MEDS ORDERED: Morphine 2 MG/ML SYRINGE IVPUSH ONE (12:05)
[2022-07-08] MEDS ORDERED: Acetaminophen 325 MG Tab PO ONE (12:05)
[2022-07-08 12:06] LABS: INR 1.9; PROTHROMBIN TIME 19.4 SECONDS (9.7-12.0)
== END 2022-07-08 15:42 | disposition home or self-care (01) ==
LOC: JD.ED 08:59
DX: L03.116 Cellulitis of left lower limb (principal); I48.91 Unspecified atrial fibrillation; I10 Essential (primary) hypertension; J45.909 Unspecified asthma, uncomplicated; Z91.048 Other nonmedicinal substance allergy status; Z88.0 Allergy status to penicillin; Z88.8 Allergy status to other drugs, medicaments and biological substances; Z79.01 Long term (current) use of anticoagulants; Z79.899 Other long term (current) drug therapy
CPT/HCPCS: 36415; 85025; 85610; 93971; 96365; 96375; 99284; A9270; J0696; J2270; J3490

== ENCOUNTER 2023-03-04 09:23 | Emergency (ER) | payer MEDICARE, BC ==
[2023-03-04] MEDS ORDERED: Lidocaine 1% 10 ML MDV ONE (09:27)
[2023-03-04] MEDS ORDERED: Lidocaine 1% 10 ML MDV INJECT ONE (09:35)
[2023-03-04 09:58] LABS: BASOPHILS PERCENT AUTO 0.3 % (0.0-1.0); EOSINOPHILS ABSOLUTE AUTO 0.2 K/mm3 (0.0-0.4); EOSINOPHILS PERCENT AUTO 2.6 % (0.0-6.0); HEMATOCRIT 35.6 % (37.0-47.0); HEMOGLOBIN 11.6 gm/dl (12.0-16.0); IMMATURE GRAN ABSOLUTE AUTO 0.03 K/mm3 (0.00-0.05); IMMATURE GRAN PERCENT AUTO 0.4 % (0.0-0.4); LYMPHOCYTES ABSOLUTE AUTO 0.8 K/mm3 (1.0-4.8); LYMPHOCYTES PERCENT AUTO 11.4 % (24.0-44.0); MEAN CORPUSCULAR HEMOGLOBIN 31.9 pg (28.0-32.0); MEAN CORPUSCULAR HGB CONC 32.6 g/dl (32.0-36.0); MEAN CORPUSCULAR VOLUME 97.8 fl (83.0-99.0); MEAN PLATELET VOLUME 8.7 fl (9.4-12.3); NEUTROPHILS ABSOLUTE AUTO 5.1 K/mm3 (1.8-7.7); NEUTROPHILS PERCENT AUTO 71.3 % (41.0-71.0); PLATELET COUNT,PLT 143 K/mm3 (150-400); RED BLOOD CELL COUNT 3.64 M/mm3 (4.10-5.30); WHITE BLOOD CELL COUNT,WBC 7.21 K/mm3 (3.9-11.3)
[2023-03-04 11:39] VITALS: BP 131/63; PULSE 51
== END 2023-03-04 11:05 | disposition home or self-care (01) ==
LOC: JD.ED 09:23
DX: S91.012A Laceration without foreign body, left ankle, initial encounter (principal); I10 Essential (primary) hypertension; J45.909 Unspecified asthma, uncomplicated; Z79.01 Long term (current) use of anticoagulants; Z88.8 Allergy status to other drugs, medicaments and biological substances; Z88.1 Allergy status to other antibiotic agents; Z91.048 Other nonmedicinal substance allergy status; Z79.899 Other long term (current) drug therapy; W22.8XXA Striking against or struck by other objects, initial encounter; Z90.710 Acquired absence of both cervix and uterus
CPT/HCPCS: 12001; 36415; 85025; 99284; J3490

== ENCOUNTER 2023-12-10 12:52 | Emergency (ER) | payer MEDICARE, BC ==
[2023-12-10] MEDS ORDERED: Lidocaine 1% 10 ML MDV INJECT ONE (14:03)
[2023-12-10 15:36] VITALS: BP 157/89; PULSE 58
== END 2023-12-10 15:36 | disposition home or self-care (01) ==
LOC: JD.ED 12:52
DX: S90.912A Unspecified superficial injury of left ankle, initial encounter (principal); I48.91 Unspecified atrial fibrillation; I10 Essential (primary) hypertension; J45.909 Unspecified asthma, uncomplicated; Z86.16 Personal history of COVID-19; Z90.710 Acquired absence of both cervix and uterus; Z79.01 Long term (current) use of anticoagulants; Z79.899 Other long term (current) drug therapy; Z91.048 Other nonmedicinal substance allergy status; Z88.0 Allergy status to penicillin; Z88.8 Allergy status to other drugs, medicaments and biological substances
CPT/HCPCS: 12001; 99283

== ENCOUNTER 2023-12-16 17:20 | Emergency (ER) | payer OTHER, MEDICARE, BC ==
[2023-12-16 17:32] VITALS: PULSE 63
[2023-12-16 17:51] LABS: BASOPHILS PERCENT AUTO 0.4 % (0.0-1.0); EOSINOPHILS ABSOLUTE AUTO 0.2 K/mm3 (0.0-0.4); EOSINOPHILS PERCENT AUTO 2.8 % (0.0-6.0); HEMATOCRIT 37.5 % (37.0-47.0); HEMOGLOBIN 12.2 gm/dl (12.0-16.0); IMMATURE GRAN ABSOLUTE AUTO 0.02 K/mm3 (0.00-0.05); IMMATURE GRAN PERCENT AUTO 0.3 % (0.0-0.4); LYMPHOCYTES ABSOLUTE AUTO 1.2 K/mm3 (1.0-4.8); LYMPHOCYTES PERCENT AUTO 17.2 % (24.0-44.0); MEAN CORPUSCULAR HEMOGLOBIN 30.4 pg (28.0-32.0); MEAN CORPUSCULAR HGB CONC 32.5 g/dl (32.0-36.0); MEAN CORPUSCULAR VOLUME 93.5 fl (83.0-99.0); MEAN PLATELET VOLUME 8.7 fl (9.4-12.3); MONOCYTES ABSOLUTE AUTO 0.9 K/mm3 (0.0-0.8); MONOCYTES PERCENT AUTO 12.1 % (0.0-8.0); NEUTROPHILS ABSOLUTE AUTO 4.8 K/mm3 (1.8-7.7); NEUTROPHILS PERCENT AUTO 67.2 % (41.0-71.0); PLATELET COUNT,PLT 170 K/mm3 (150-400); RED BLOOD CELL COUNT 4.01 M/mm3 (4.10-5.30)
[2023-12-16 18:26] LABS: A/G RATIO 0.7 (1-2); ALBUMIN 3.2 g/dl (3.4-5.0); ANION GAP 10.5 (5-15); BILIRUBIN TOTAL 0.9 mg/dL (0.2-1.0); CALCIUM 9.3 mg/dL (8.5-10.1); EST CRCL DRUG DOSING (CG) 29.54 mL/min; POTASSIUM,K 4.5 mEq/L (3.5-5.1); PROTEIN TOTAL,TP 7.5 g/dl (6.4-8.2)
[2023-12-16] MEDS: Iopamidol 755 Mg/ML 100 ML Bottle IVPUSH ONE (18:56)
[2023-12-16] MEDS: Sodium Chloride 0.9% 10 ML Syringe FLUSH PRN (18:56)
[2023-12-16] MEDS: Sodium Chloride 0.9% 500 ML IV ONE (19:06)
[2023-12-16] MEDS: fentaNYL 100 MCG/2 ML SDV IVPUSH ONE (19:06)
[2023-12-16] MEDS ORDERED: Naloxone 0.4 MG/ML SDV IVPUSH PRN (20:19)
[2023-12-16] MEDS: HYDROmorphone 0.5 MG/0.5 ML Syringe IVPUSH ONE (20:44)
[2023-12-16 20:55] LABS: APPEARANCE,URINE CLEAR (Clear); BILIRUBIN,URINE NEGATIVE (Negative); COLOR,URINE YELLOW (Yellow); GLUCOSE,URINE NEGATIVE (Negative); KETONES,URINE NEGATIVE (Negative); LEUKOCYTE ESTERASE,URINE NEGATIVE (Negative); NITRITE,URINE NEGATIVE (Negative); OCCULT BLOOD,URINE TRACE-INTACT (Negative); PH,URINE 6.5 (5.0-8.0); PROTEIN,URINE NEGATIVE (Negative)
[2023-12-16 21:15] LABS: RBC,URINE 0-5 /hpf (0-5); WBC,URINE 0-5 /hpf (0-5)
[2023-12-16 21:16] LABS: BACTERIA,URINE MODERATE /hpf (FEW); MUCUS,URINE FEW /hpf (FEW)
[2023-12-16 23:17] VITALS: BP 147/73
== END 2023-12-16 23:00 | disposition home or self-care (01) ==
LOC: JD.ED 17:20
DX: R07.89 Other chest pain (principal); I80.9 Phlebitis and thrombophlebitis of unspecified site; I10 Essential (primary) hypertension; E78.00 Pure hypercholesterolemia, unspecified; Z90.710 Acquired absence of both cervix and uterus; Z79.899 Other long term (current) drug therapy; Z88.1 Allergy status to other antibiotic agents; Z88.8 Allergy status to other drugs, medicaments and biological substances; Z88.5 Allergy status to narcotic agent; Z91.048 Other nonmedicinal substance allergy status; V49.40XA Driver injured in collision with unspecified motor vehicles in traffic accident, initial encounter
CPT/HCPCS: 36415; 70450; 71260; 72125; 73030; 73552; 73590; 74177; 80053; 81001; 83690; 84484; 85025; 93005; 96361; 96374; 96375; 99284; J1171; J3010; J3490; J7030; Q9967; 93010

== ENCOUNTER 2024-03-08 11:26 | Inpatient (IN) | payer MEDICARE, BC ==
[2024-03-08] MEDS ORDERED: Naloxone 0.4 MG/ML SDV IVPUSH PRN ×2 (11:33→14:22)
[2024-03-08] MEDS: Ondansetron 4 MG/2 ML SDV IVPUSH ONE (11:50)
[2024-03-08] MEDS: fentaNYL 100 MCG/2 ML SDV IVPUSH ONE (11:50)
[2024-03-08 13:25] LABS: BASOPHILS PERCENT AUTO 0.2 % (0.0-1.0); EOSINOPHILS ABSOLUTE AUTO 0.2 K/mm3 (0.0-0.4); EOSINOPHILS PERCENT AUTO 4.2 % (0.0-6.0); HEMOGLOBIN 11.2 gm/dl (12.0-16.0); IMMATURE GRAN ABSOLUTE AUTO 0.02 K/mm3 (0.00-0.05); IMMATURE GRAN PERCENT AUTO 0.4 % (0.0-0.4); LYMPHOCYTES ABSOLUTE AUTO 1.2 K/mm3 (1.0-4.8); LYMPHOCYTES PERCENT AUTO 23.2 % (24.0-44.0); MEAN CORPUSCULAR HEMOGLOBIN 29.9 pg (28.0-32.0); MEAN CORPUSCULAR HGB CONC 31.1 g/dl (32.0-36.0); MEAN CORPUSCULAR VOLUME 96.3 fl (83.0-99.0); MEAN PLATELET VOLUME 9.4 fl (9.4-12.3); MONOCYTES ABSOLUTE AUTO 0.7 K/mm3 (0.0-0.8); PLATELET COUNT,PLT 164 K/mm3 (150-400); RED BLOOD CELL COUNT 3.74 M/mm3 (4.10-5.30); WHITE BLOOD CELL COUNT,WBC 5.01 K/mm3 (3.9-11.3)
[2024-03-08 13:45] LABS: INR 1.03; PROTHROMBIN TIME 10.9 SECONDS (9.7-12.0)
[2024-03-08 13:57] LABS: A/G RATIO 0.7 (1-2); ALBUMIN 2.8 g/dl (3.4-5.0); ANION GAP 10.7 (5-15); BILIRUBIN TOTAL 0.7 mg/dL (0.2-1.0); BUN/CREATININE RATIO 15.8 (14-18); CALCIUM 9.1 mg/dL (8.5-10.1); CREATININE 1.2 mg/dL (0.55-1.02); EST CRCL DRUG DOSING (CG) 29.6 mL/min; PROTEIN TOTAL,TP 6.9 g/dl (6.4-8.2)
[2024-03-08 14:04] LABS: POTASSIUM,K 6.7 mEq/L (3.5-5.1)
[2024-03-08] MEDS ORDERED: Ondansetron 4 MG/2 ML SDV IVPUSH PRN (14:21)
[2024-03-08] MEDS: fentaNYL 100 MCG/2 ML SDV IVPUSH PRN (14:41)
[2024-03-08 14:48] LABS: ANION GAP 12.6 (5-15); BUN/CREATININE RATIO 15.4 (14-18); CALCIUM 9.6 mg/dL (8.5-10.1); CREATININE 1.3 mg/dL (0.55-1.02); EST CRCL DRUG DOSING (CG) 27.32 mL/min
[2024-03-08 14:53] LABS: POTASSIUM,K 6.6 mEq/L (3.5-5.1)
[2024-03-08] MEDS: Albuterol 0.5% 2.5 MG/0.5 ML Neb Soln NEB SCH (15:00)
[2024-03-08] MEDS: 50% Dextrose in Water 50 ML Syringe IVPUSH STA ×2 (15:22→20:49)
[2024-03-08] MEDS: Furosemide 20 MG/2 ML VIAL IVPUSH ONE (15:22)
[2024-03-08] MEDS: Calcium Gluconate 10% 1 GM/10 ML SDV IVPUSH ONE ×2 (15:22→20:50)
[2024-03-08] MEDS: Insulin Regular, Human 100 Units/ML 10 ML Vial IV ONE ×2 (15:23→20:51)
[2024-03-08] MEDS: Ketorolac 15 MG/ML SDV IVPUSH ONE (17:35)
[2024-03-08] MEDS: Atropine 0.1 MG/ML 10 ML Syringe IVPUSH ONE ×2 (17:49→19:17)
[2024-03-08] MEDS: Atropine 0.1 MG/ML 10 ML Syringe ONE (17:50)
[2024-03-08] MEDS: Albuterol 0.083% 2.5 MG/3 ML Neb Soln NEB ONE ×2 (17:55→21:48)
[2024-03-08] MEDS ORDERED: Atropine 0.1 MG/ML 10 ML Syringe IVPUSH PRN (17:57)
[2024-03-08] MEDS ORDERED: Sennosides/Docusate Sodium 50-8.6 MG Tab PO PRN (18:06)
[2024-03-08] MEDS ORDERED: Melatonin 3 MG Tab PO PRN (18:06)
[2024-03-08] MEDS ORDERED: Glucagon,Human Recombinant 1 MG Vial IM PRN (18:14)
[2024-03-08] MEDS ORDERED: 50% Dextrose in Water 50 ML Syringe IVPUSH PRN (18:14)
[2024-03-08] MEDS: Heparin Sodium 5,000 Units/ML Vial SUBCUT SCH (18:17)
[2024-03-08] MEDS ORDERED: Albuterol/Ipratropium 3.0-0.5 MG/3 ML Neb Soln NEB PRN (18:21)
[2024-03-08] MEDS: Acetaminophen 325 MG Tab PO PRN (18:40)
[2024-03-08] MEDS: Glucagon,Human Recombinant 1 MG Vial IVPUSH ONE (18:46)
[2024-03-08 18:55] LABS: ANION GAP 11.7 (5-15); CALCIUM 9.7 mg/dL (8.5-10.1); CREATININE 1.4 mg/dL (0.55-1.02); EST CRCL DRUG DOSING (CG) 25.37 mL/min; PHOSPHORUS 5.1 mg/dL (2.6-4.7); POTASSIUM,K 5.7 mEq/L (3.5-5.1)
[2024-03-08 19:29] LABS: TSH 1.304 uIU/mL (0.358-3.74)
[2024-03-08] MEDS: EPINEPHrine 1 MG in Dextrose 5% in Water 99 ML IV SCH (19:45)
[2024-03-08 19:47] LABS: HEMATOCRIT 31.4 % (37.0-47.0); HEMOGLOBIN 9.7 gm/dl (12.0-16.0)
[2024-03-08] MEDS: Insulin Lispro 100 Unit/ML 3 ML KwikPen SUBCUT SCH (22:00)
[2024-03-08] MEDS: Albuterol 6.7 GM Inhaler INH ONE (22:04)
[2024-03-09] MEDS: Sodium Zirconium Cyclosilicate 10 GM Packet PO SCH (01:06)
[2024-03-09 06:20] LABS: BASOPHILS PERCENT AUTO 0.2 % (0.0-1.0); EOSINOPHILS PERCENT AUTO 0.3 % (0.0-6.0); HEMATOCRIT 32.6 % (37.0-47.0); HEMOGLOBIN 10.1 gm/dl (12.0-16.0); IMMATURE GRAN ABSOLUTE AUTO 0.05 K/mm3 (0.00-0.05); IMMATURE GRAN PERCENT AUTO 0.4 % (0.0-0.4); LYMPHOCYTES ABSOLUTE AUTO 0.5 K/mm3 (1.0-4.8); LYMPHOCYTES PERCENT AUTO 4.2 % (24.0-44.0); MEAN CORPUSCULAR HEMOGLOBIN 30.1 pg (28.0-32.0); MEAN PLATELET VOLUME 9.3 fl (9.4-12.3); NEUTROPHILS ABSOLUTE AUTO 11.1 K/mm3 (1.8-7.7); NEUTROPHILS PERCENT AUTO 86.9 % (41.0-71.0); PLATELET COUNT,PLT 134 K/mm3 (150-400); RED BLOOD CELL COUNT 3.36 M/mm3 (4.10-5.30); WHITE BLOOD CELL COUNT,WBC 12.72 K/mm3 (3.9-11.3)
[2024-03-09 06:44] LABS: INR 1.09; PROTHROMBIN TIME 11.5 SECONDS (9.7-12.0)
[2024-03-09 06:45] LABS: A/G RATIO 0.6 (1-2); ALBUMIN 2.5 g/dl (3.4-5.0); ANION GAP 12.5 (5-15); BILIRUBIN TOTAL 1.1 mg/dL (0.2-1.0); BUN/CREATININE RATIO 15.3 (14-18); C-REACTIVE PROTEIN 3.17 mg/dL (<0.30); CALCIUM 9.4 mg/dL (8.5-10.1); CREATININE 1.7 mg/dL (0.55-1.02); EST CRCL DRUG DOSING (CG) 20.89 mL/min; MAGNESIUM 1.7 mg/dL (1.8-2.4); PHOSPHORUS 5.3 mg/dL (2.6-4.7); PROTEIN TOTAL,TP 6.4 g/dl (6.4-8.2)
[2024-03-09 06:48] LABS: POTASSIUM,K 6.5 mEq/L (3.5-5.1)
[2024-03-09] MEDS: Gabapentin 300 MG Cap PO SCH (06:51)
[2024-03-09] MEDS: Albuterol 0.083% 2.5 MG/3 ML Neb Soln NEB ONE ×2 (07:56→15:36)
[2024-03-09] MEDS ORDERED: Piperacillin/Tazobactam 4.5 GM in Sodium Chloride 0.9% 100 ML IV SCH (08:00)
[2024-03-09] MEDS: Insulin Regular, Human 100 Units/ML 3 ML Vial IV ONE (08:05)
[2024-03-09] MEDS: Calcium Gluconate 10% 1 GM/10 ML SDV IVPUSH ONE ×2 (08:06→15:35)
[2024-03-09] MEDS: 50% Dextrose in Water 50 ML Syringe IVPUSH ONE ×2 (08:06→15:35)
[2024-03-09] MEDS: Gabapentin 100 MG Cap PO SCH (08:18)
[2024-03-09] MEDS: Piperacillin/Tazobactam 4.5 GM Vial IV SCH (08:18)
[2024-03-09] MEDS ORDERED: Gabapentin 100 MG Cap PO SCH ×2 (09:00→15:00)
[2024-03-09] MEDS: Ondansetron 4 MG/2 ML SDV IV PRN (10:07)
[2024-03-09] MEDS: Sodium Chloride 0.9% 500 ML ONE (10:08)
[2024-03-09] MEDS: LORazepam 2 MG/ML SDV IVPUSH ONE (10:35)
[2024-03-09 11:50] LABS: ANION GAP 14.6 (5-15); BUN/CREATININE RATIO 14.7 (14-18); CREATININE 1.9 mg/dL (0.55-1.02); EST CRCL DRUG DOSING (CG) 18.69 mL/min; POTASSIUM,K 5.6 mEq/L (3.5-5.1)
[2024-03-09] MEDS ORDERED: Phenylephrine 10 MG in Sodium Chloride 0.9% 99 ML IV SCH (12:30)
[2024-03-09] MEDS: Vasopressin 100 UNIT in Dextrose 5% in Water 245 ML IV SCH (12:32)
[2024-03-09] MEDS: Midazolam 1 MG/ML 2 ML SDV ONE (12:40)
[2024-03-09] MEDS: Morphine 4 MG/ML Syringe ONE (12:44)
[2024-03-09] MEDS: Phentolamine 5 MG Vial SUBCUT ONE (14:21)
[2024-03-09] MEDS: Insulin Regular, Human 100 Units/ML 10 ML Vial IV ONE (15:35)
[2024-03-09 17:31] VITALS: BP 124/47; PULSE 69
[2024-03-09] MEDS ORDERED: Piperacillin/Tazobactam 4.5 GM Vial IV SCH (20:00)
[2024-03-10] MEDS ORDERED: Gabapentin 100 MG Cap PO SCH (09:00)
== END 2024-03-09 16:45 | DRG 533 ==
LOC: JD.ED 11:26 → JD.MS 15:12 → JD.ICU 17:42
PROVIDERS: ADMIT Student in an Organized Health Care Education/Training Program; ATTEND Student in an Organized Health Care Education/Training Program
PROC: 5A09357 Assistance with Respiratory Ventilation, Less than 24 Consecutive Hours, Continuous Positive Airway Pressure (ICD-10-PCS; 2024-03-08)
PROC: 02HV33Z Insertion of Infusion Device into Superior Vena Cava, Percutaneous Approach (ICD-10-PCS; principal; 2024-03-09)
PROC: 03HY32Z Insertion of Monitoring Device into Upper Artery, Percutaneous Approach (ICD-10-PCS; 2024-03-09)
PROC: 4A133B1 Monitoring of Arterial Pressure, Peripheral, Percutaneous Approach (ICD-10-PCS; 2024-03-09)
PROC: 4A133J1 Monitoring of Arterial Pulse, Peripheral, Percutaneous Approach (ICD-10-PCS; 2024-03-09)
PROC: 02H633Z Insertion of Infusion Device into Right Atrium, Percutaneous Approach (ICD-10-PCS; 2024-03-09)
DX: S72.402A Unspecified fracture of lower end of left femur, initial encounter for closed fracture (principal); E87.6 Hypokalemia; I48.0 Paroxysmal atrial fibrillation; I11.0 Hypertensive heart disease with heart failure; I50.9 Heart failure, unspecified; J96.01 Acute respiratory failure with hypoxia; R57.0 Cardiogenic shock; N17.9 Acute kidney failure, unspecified; I48.91 Unspecified atrial fibrillation; M19.90 Unspecified osteoarthritis, unspecified site; Z91.048 Other nonmedicinal substance allergy status; Z96.653 Presence of artificial knee joint, bilateral; W19.XXXA Unspecified fall, initial encounter; Z96.643 Presence of artificial hip joint, bilateral; Z96.612 Presence of left artificial shoulder joint; Z96.611 Presence of right artificial shoulder joint; M10.9 Gout, unspecified; G62.9 Polyneuropathy, unspecified; H54.7 Unspecified visual loss; E78.00 Pure hypercholesterolemia, unspecified; I10 Essential (primary) hypertension; J45.909 Unspecified asthma, uncomplicated; G89.29 Other chronic pain; R87.5 Abnormal microbiological findings in specimens from female genital organs; E88.09 Other disorders of plasma-protein metabolism, not elsewhere classified; W18.39XA Other fall on same level, initial encounter; Y93.01 Activity, walking, marching and hiking; E87.5 Hyperkalemia; Z88.1 Allergy status to other antibiotic agents; Z88.8 Allergy status to other drugs, medicaments and biological substances; Z79.01 Long term (current) use of anticoagulants; Z79.899 Other long term (current) drug therapy; Z79.1 Long term (current) use of non-steroidal anti-inflammatories (NSAID); Z86.718 Personal history of other venous thrombosis and embolism; Z90.89 Acquired absence of other organs; Z86.16 Personal history of COVID-19; Y92.89 Other specified places as the place of occurrence of the external cause; Z90.710 Acquired absence of both cervix and uterus; Z90.10 Acquired absence of unspecified breast and nipple; Z98.49 Cataract extraction status, unspecified eye
CPT/HCPCS: 36415; 71045; 73502; 73560; 80048; 80053; 82550; 84443; 84484; 85025; 85610; 93005; 94640; J1815; J2405; J3010; 51702; 82947; 83735; 83880; 84100; 85014; 85018; 86140; 93010; 93306; 99285; A9270-GY; J0171; J0461; J0612; J1610; J1644; J1885; J1940; J2250; J2270; J2543; J2760; J3490; J7040; J7060; J7620-GY